=== PATIENT | male | born 1945 | race Caucasian/White ===

== ENCOUNTER → 2017-02-11 | Outpatient (CLI) | payer OTHER ==
[~2017-02-11] VITALS: Ht 180.3 cm; Wt 118.4 kg
[~2017-02-11] MED LIST: ALEVE220 MG PO; B-100 COMPLEX1 EAC1 PO; B-COMPLEX-VITA1 EACH PO; CIPROFLOXACIN500 M3 PO; CYCLOBENZAPRINE5 MG PO; FLEXERIL PO; FOLIC ACID; FOLIC ACID 40400 MCG PO; HYDROCODONE OR; IBUPROFEN 800800 MG PO; IRON; LISINOPRIL40 MG PO; MULTIVITAMINS PO; NORCO 5-325 TA1 EACH PO; OMEPRAZOLE10 MG PO; PRILOSEC 20 MG20 MG PO; SLOW FE 160MG160 MG PO; SLOW RELEASE I140 MG PO; TAMSULOSIN HCL0.4 M1 PO; VICODIN 5-5001 EACH PO; VITAMIN B-12500 MCG PO; VITAMIN B-6250 MG PO; VITAMIN D1000 UNI1 PO; VITAMIN E400 UNIT PO; VITAMINC500 PO
--- NOTE | ~2017-02-11 | P ---
[facility] [place] [address] PROCEDURE REPORT Name: ANN TREVINO Room #: REG [facility]#: [id number] Admission: 02/11/17 Attend Phys: Lincoln Borjas Discharge: Date of : 43 Report #: [id number] THIS REPORT FOR: //name// CC: Lincoln Gomez MD DATE OF SERVICE: 02/11/2017 PROCEDURE PERFORMED: Upper endoscopy with biopsies. 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 He is currently taking daily PPI therapy. He denies any symptoms. He denies any dysphagia. He is here for a 1-year followup. DESCRIPTION OF PROCEDURE: The risks and benefits of the procedure were explained to the patient, those risks including but not limited to bleeding, perforation, the risk of sedation. He understood these risks and gave informed consent. Sedation was given using propofol per anesthesia. Next, using a standard [email or web address] upper endoscope, the scope was placed in the patient's mouth and advanced under direct vision through the esophagus, stomach and into the second portion of the duodenum. The upper and mid esophagus was normal in appearance. In the distal esophagus, a short segment of Nix's was once again noted. Biopsies were obtained. There was no evidence of esophagitis. Overall, the gastric mucosa was normal. The pylorus was normal and patent. The duodenal bulb, first and second portion were all normal. The scope was then withdrawn and the procedure terminated. The patient tolerated the procedure well. IMPRESSION: 1. Short segment Nix's esophagus ____ distal esophagus. Biopsies obtained. 2. Otherwise, normal upper endoscopy. RECOMMENDATIONS: 1. Await biopsy results. 2. Continue daily PPI therapy. Thank you for allowing me to participate in his care. By: 0937 1054 Lincoln Peoples MD /nt
--- NOTE | ~2017-02-11 | S ---
[facility] [address] [place] [address] SURGICAL PATH RPT PROCEDURE Name: ANN TREVINO Room #: REG [facility] Naylor.#: [id number] Admission: 02/11/17 Date of : 43 Discharge: Report #: [id number] Path Case #: [id number] PATHOLOGY REPORT DRAFT COLLECTION DATE: 02/11/2017 RECEIVED DATE: 02/11/2017 SPECIMEN(S) RECEIVED: A.Distal esophagus bx
== END | disposition home or self-care (01) ==
LOC: GI 06:46
DX: K22.70 Barrett's esophagus without dysplasia (principal); K21.9 Gastro-esophageal reflux disease without esophagitis
CPT/HCPCS: 62110

== ENCOUNTER → 2017-07-29 | Outpatient (CLI) | payer OTHER ==
[~2017-07-29] MED LIST changes: +LEVO-T50 MCG PO
--- NOTE | ~2017-07-29 | EKG ---
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
== END | disposition home or self-care (01) ==
LOC: LITH 07:49
DX: N20.0 Calculus of kidney (principal); I10 Essential (primary) hypertension; Z98.890 Other specified postprocedural states

== ENCOUNTER → 2019-01-06 | Outpatient (CLI) | payer OTHER | LOC: MRI 07:15 | DX: M47.22 Other spondylosis with radiculopathy, cervical region (principal); M25.78 Osteophyte, vertebrae ==

== ENCOUNTER → 2019-03-31 | Outpatient (CLI) | payer OTHER | LOC: RAD 12:44 | DX: R10.9 Unspecified abdominal pain (principal) ==

== ENCOUNTER → 2019-08-04 | Outpatient (CLI) | payer OTHER | LOC: MRI 07:14 | DX: S83.282A Other tear of lateral meniscus, current injury, left knee, initial encounter (principal); M22.42 Chondromalacia patellae, left knee; M25.462 Effusion, left knee; M71.22 Synovial cyst of popliteal space [Baker], left knee; X58.XXXA Exposure to other specified factors, initial encounter; Y93.89 Activity, other specified; Y92.89 Other specified places as the place of occurrence of the external cause; Y99.8 Other external cause status ==

== ENCOUNTER 2019-08-26 05:42 | Day surgery (SDC) | payer OTHER ==
[~2019-08-26] VITALS: Ht 180.3 cm; Wt 115.7 kg
[~2019-08-26 05:42] MED LIST changes: +ADVIL200 M1 PO; +LEVO-T100 MCG PO; +LOPRESSOR25 PO; +OMEPRAZOLE40 MG PO; +SULINDAC 150 M150 MG PO; +TAMSULOSIN HCL0.4 MG PO
[2019-08-26 07:02] VITALS: BP 204/67
[2019-08-26 07:25] LABS: HEMOGLOBIN 14.4 gm/dL (14.0-18.0); MCH 26.9 pg (26.0-34.0); MCHC 32.8 g/dL (28.0-37.0); MCV 82.1 fL (80.0-100.0); RBC 5.35 mil/uL (4.50-6.00); RDW 15.6 % (10.5-14.5); WBC 8.6 thou/uL (4.0-11.0)
--- NOTE | 2019-08-26 08:53 | O ---
[facility] [place] [address] OPERATIVE REPORT Name: ANN TREVINO Room #: 150-1 [facility].#: [id number] Admission: 08/26/19 Attend Phys: Teto Parker MD Discharge: Date of : 43 Report #: [id number] THIS REPORT FOR: //name// CC: Teto Gomez DATE OF SERVICE: 08/26/2019 PREOPERATIVE DIAGNOSIS: Left knee pain with lateral meniscus tear and degenerative chondromalacia. POSTOPERATIVE DIAGNOSIS: Left knee pain with lateral meniscus tear and degenerative chondromalacia. PROCEDURE: Left knee arthroscopy with partial lateral meniscectomy and limited debridement of patellofemoral chondromalacia. SURGEON: Teto Parker MD INDICATIONS: This heavy, but still very active and fully independent 74-year-old gentleman still works for work week. He is on his feet rather constantly. He complains of moderate ongoing left knee pain. Clinical findings and MRI study are consistent with mild chondromalacia and a mild lateral meniscus tear. He has had similar problems on the opposite side, which were benefited with arthroscopic debridement. We tried conservative measures on the left without much benefit. He certainly does not seem to be in need of a total joint replacement, despite his advanced age, we have elected to go ahead with simple arthroscopic debridement hoping that he can be more comfortable and continue working and functioning. DESCRIPTION OF PROCEDURE: The patient was taken to the operating room where he was placed under general anesthesia. Prophylactic intravenous antibiotics were administered. The left knee and leg were meticulously prepped and draped. A thigh tourniquet was applied and inflated to 300 mmHg. A lateral suprapatellar inflow cannula was placed. The arthroscope and probe were introduced. Various compartments were sequentially visualized and documented with arthroscopic photography. In general, the degenerative cartilage damage is rather mild. There is a grade 1 to grade 2 chondromalacia on the patella and the lateral femoral condyle. These areas were gently debrided. There was a small amount of loose cartilage debris in the suprapatellar pouch, which was also debrided. The intercondylar notch reveals normal cruciate ligaments, which were functioning nicely. The medial compartment reveals good cartilage on the medial femoral condyle and the medial tibial plateau with only minor fissuring and [address] [address] OPERATIVE REPORT Name: ANN TREVINO Room #: 150-1 [facility]#: [id number] Admission: 08/26/19 Attend Phys: Teto Parker MD Discharge: Date of : 43 Report #: [id number] grooving. There is slight fraying along the inner margin of the medial meniscus, which was gently debrided. The vast majority of the meniscus is in good shape and no further debridement here was necessary. The lateral compartment revealed more significant damage to the lateral meniscus. This involves about the inner one half to two thirds of the meniscus. There is both vertical and horizontal cleavage tearing extending from the anterior horn almost all the way back to the posterior horn. These areas were debrided using a small shaver leaving the outer one third of the meniscus intact and stable. There is mild corresponding degenerative chondromalacia on the lateral femoral condyle, which was also debrided. The lateral tibial plateau was in good shape and no debridement there was necessary. The entire knee was copiously irrigated. All excess fluid was evacuated from the knee. The knee was then injected with 80 mg of Depo-Medrol and 20 mL of 0.5% Marcaine with epinephrine. The puncture sites were closed with interrupted nylon suture. The patient was awakened and returned to recovery room in good condition. <ELECTRONICALLY SIGNED> By: Teto Parker MD 08/26/19 0853 0838 0852 Teto Parker MD /nt
[2019-08-26 09:02] VITALS: BP 204/67
== END 2019-08-26 09:40 | disposition home or self-care (01) ==
LOC: OR 05:42 → TBA 05:43 → OR 07:35
PROVIDERS: Orthopaedic Surgery
DX: M25.562 Pain in left knee (principal); M23.242 Derangement of anterior horn of lateral meniscus due to old tear or injury, left knee; M23.232 Derangement of other medial meniscus due to old tear or injury, left knee; M94.262 Chondromalacia, left knee; I10 Essential (primary) hypertension; E11.9 Type 2 diabetes mellitus without complications; D64.9 Anemia, unspecified; K21.9 Gastro-esophageal reflux disease without esophagitis; M19.90 Unspecified osteoarthritis, unspecified site; E03.9 Hypothyroidism, unspecified; Z98.890 Other specified postprocedural states; Z90.49 Acquired absence of other specified parts of digestive tract; Z79.899 Other long term (current) drug therapy; Z87.442 Personal history of urinary calculi
CPT/HCPCS: 50010; 50101; 50405; 51038; 54170; 56526; 56616; 57103; 57180; 62110; 62900; 70005

== ENCOUNTER → 2020-09-11 | Outpatient (CLI) | payer OTHER ==
[~2020-09-11] MED LIST changes: +CIPRO500 M1 PO; +METRONIDAZOLE500 M4 PO; +NORVASC10 MG PO
== END ==
LOC: LAB 14:21
PROVIDERS: ATTEND Neuromusculoskeletal Medicine & OMM
DX: Z20.828 Contact with and (suspected) exposure to other viral communicable diseases (principal)

== ENCOUNTER 2020-09-12 11:19 | Inpatient (IN) | payer OTHER ==
[~2020-09-12] VITALS: Ht 180.3 cm; Wt 117.5 kg
[~2020-09-12 11:19] MED LIST changes: -CIPRO500 M1 PO; -LOPRESSOR25 PO; +LOPRESSOR50 PO; -METRONIDAZOLE500 M4 PO; -NORVASC10 MG PO
[2020-09-12 11:21] VITALS: BP 106/71
[2020-09-12 12:39] LABS: ABSOLUTE NEUTROPHILS 8.5 thou/uL (1.4-8.2); BASOPHILS 0.3 % (0.0-2.0); EOSINOPHILS 7.4 % (0.0-3.0); HEMATOCRIT 42.5 % (42.0-52.0); HEMOGLOBIN 13.8 gm/dL (14.0-18.0); LYMPHOCYTES 4.7 % (24.0-44.0); MCH 26.1 pg (26.0-34.0); MCHC 32.5 g/dL (28.0-37.0); MCV 80.2 fL (80.0-100.0); MONOCYTES 5.9 % (1.0-8.0); PLATELET COUNT 265 thou/uL (150-400); POLYS 81.7 % (36.0-66.0); RDW 15.8 % (10.5-14.5); WBC 10.4 thou/uL (4.0-11.0)
[2020-09-12 12:50] LABS: ANION GAP 15 mmol/L (7-16); BUN 47 mg/dL (7-18); CALCIUM 8.9 mg/dL (8.5-10.1); CHLORIDE 103 mmol/L (98-107); CO2 21 mmol/L (21-32); GLUCOSE 146 mg/dL (74-106); SODIUM 139 mmol/L (136-145)
[2020-09-12 13:00] LABS: ALBUMIN 2.9 g/dL (3.4-5.0); DIRECT BILIRUBIN 0.1 mg/dL (<0.1-0.2); LIPASE 49 U/L (73-393); SGOT 33 U/L (15-37); SGPT 40 U/L (30-65); TOTAL BILIRUBIN 0.5 mg/dL (0.2-1.0); TOTAL PROTEIN 7.3 g/dL (6.4-8.2); TROPONIN-I <0.06 ng/mL (<0.06)
[2020-09-12 16:05] LABS: URINE BILIRUBIN NEGATIVE (Negative); URINE BLOOD NEGATIVE (Negative); URINE CLARITY SL CLOUDY; URINE COLOR YELLOW; URINE GLUCOSE-RANDOM* NEGATIVE (Negative); URINE KETONES NEGATIVE (Negative); URINE LEUKOCYTES-REFLEX NEGATIVE (Negative); URINE NITRITE-REFLEX NEGATIVE (Negative); URINE PROTEIN (DIPSTICK) TRACE (Negative); URINE SPECIFIC GRAVITY >= 1.030 (1.005-1.035); URINE UROBILINOGEN 0.2 E.U./dl (0.2-1.0)
[2020-09-12 19:04] LABS: FOLIC ACID 27.8 ng/mL (8.6-58.9)
[2020-09-12 19:10] VITALS: BP 139/97
--- NOTE | 2020-09-12 19:11 | NUR ---
HAND OFF TOOL SENT TO [facility]
[2020-09-12 19:31] VITALS: BP 180/82
[2020-09-12 20:01] VITALS: BP 145/61
--- NOTE | 2020-09-13 00:49 | NUR ---
PT ADMITTED FROM HOME. PT WAS IN ED SINCE EARLY AFTERNOON. PT STATED HE HAS BEEN WEAK, BODY ACHES,DIARRHEA, LACK OF APPETITE SINCE LAST THURSDAY. PT AND HIS WERE TESTED FOR COVID YESTERDAY WAITING ON RESULTS. PT IS NOT COUGHING OR SOA. PT IS WEAK AND POORLY TRANSFERRED SELF FROM CART TO BED. PT IS OBESE, PALE, PICTURE TAKEN LOW ABD WOUND SITE OPEN SLOUGH, PT REPORTS FROM RESECTION SURGERY ON 08/08. PT IS IRRITABLE WITH RESPONSES TO ADMISSION QUESTIONS. PT DECLINED SCDS. IVF INTACT. BED ALARM ON.
[2020-09-13 04:03] VITALS: BP 150/74
[2020-09-13 06:25] LABS: ABSOLUTE NEUTROPHILS 6.1 thou/uL (1.4-8.2); BASOPHILS 0.3 % (0.0-2.0); EOSINOPHILS 0.7 % (0.0-3.0); HEMATOCRIT 39.7 % (42.0-52.0); LYMPHOCYTES 6.2 % (24.0-44.0); MCH 26.1 pg (26.0-34.0); MCHC 32.6 g/dL (28.0-37.0); MONOCYTES 1.9 % (1.0-8.0); PLATELET COUNT 242 thou/uL (150-400); POLYS 90.9 % (36.0-66.0); RBC 4.96 mil/uL (4.50-6.00); WBC 6.8 thou/uL (4.0-11.0)
--- NOTE | 2020-09-13 06:36 | NUR ---
PT DID NOT URINATE MORE THAN 75CCS. PT STATES SOME TIMES HE DOES URINATE AND OTHER TIMES IT TAKES A WHILE. BLADDER SCANNED 380 NOTED. PROVIDER CONTACTED SINCE PT REPORTED HISTORY OR RECENT BLADDER SURGERY, WITH CURRENT OPEN WOUND AND REPORTS OF PENIS RECONSTRUCTION AT . SURGERY CONSULT OBTAINED. DARLING SENT TO MED RECORDS. PROVIDER WILL HAVE ONCOMING PROVIDER REVIEW PRIOR TO CATHETERIZATION ORDERS.
[2020-09-13 06:45] LABS: CALCIUM 8.6 mg/dL (8.5-10.1); CREATININE 1.4 mg/dL (0.7-1.3); MAGNESIUM 2.1 mg/dL (1.8-2.4); POTASSIUM 4.4 mmol/L (3.5-5.1)
[2020-09-13 07:12] VITALS: BP 163/80
[2020-09-13 08:30] VITALS: BP 178/90
[2020-09-13 09:40] VITALS: BP 124/69
--- NOTE | 2020-09-13 09:58 | NUR ---
ASSESSMENT: CM REVIEWED CHART AND SPOKE WITH PT. PT IS ALERT AND ORIENTED X4. PT IS CURRENTLY IN ENHANCED ISOLATION AND BEING RULE OUT FOR COVID 19-RESULTS PENDING. PT WAS ADMITTED DUE TO FATIGUE, WEAKNESS, DIARRHEA. PT REPORTS THAT HE LIVES IN AN APT WITH HIS . PT IS NOT CURRENTLY REQUIRING ANY OXYGEN. PT REPORTS THAT HE HAS NO STEPS TO ENTER HIS APT. PT REPORTS HE HAS A WALKER AT HOME BUT STATES HE NORMALLY DOES NOT USE IT. PT REPORTS BEING INDEPENDENT WITH ADLS. PT REPORTS NO HX OF HH OR SNF. PTS PCP IS DR. BRISCOE. GENERAL SURGERY WAS CONSULTED DUE TO URINARY RETENTION AND ARE FOLLOWING. CM WILL CONTINUE TO FOLLOW TO ASSIST NEEDED.
[2020-09-13 15:58] VITALS: BP 170/80
--- NOTE | 2020-09-13 18:35 | NUR ---
RN ASSUMED PT'S CARE AT 0700AM, PT IS A&OX3, PT HAS STARTED IV ABX, PT 'S VS ARE STABLE, PT DOES NOT HAVE SOB AND DIARRHEA , WOUND DR AND SURGICAL DR HAVE SEEING THE PT. PT'S ISOLATION IS OFF DUE TO NEGATIVE COVID TEST.
[2020-09-13 19:28] VITALS: BP 178/90
--- NOTE | 2020-09-14 01:03 | NUR ---
ASSUMED CARE OF PT AT 1900HRS. PT AOX3-4 AND LETS NEEDS BE KNWON. FALL PRECAUTION IN PLACE. PT DENIES PAIN, NAUSEA OR SOA. PT REPORTS BEING WEAK. ASSESSMENT CHARTED. ABX TREATMENT CONTINUED. PT HAD ELEVATED BP BUT OTHER VSS. PT WAS COVID NEGATIVE AND WAS ORDERED TO DC ISOLALATION. PT TRANSFERRED TO ROOM 454 AT 0115HRS IN STABLE CONDITION. REPORT GIVEN TO NEGRITO ZAVALETA.
[2020-09-14 01:06] LABS: GLYCOHEMOGLOBIN (HGB A1C) 6.2 % (4.8-5.6)
[2020-09-14 01:20] VITALS: BP 151/86
[2020-09-14 08:22] VITALS: BP 149/70
--- NOTE | 2020-09-14 10:45 | NUR ---
cm visited with mahamed at bedside, cm cont to wear face mask and shield during visit. pt just had worked with physical therapy. cm education on hh, list choice provided , " [facility]"/mahamed. [facility] to be [facility]. faxed dc orders to [phone]
[2020-09-14 12:14] VITALS: BP 149/70
[2020-09-14] MEDS ORDERED: NORVASC10 MG PO (12:22)
[2020-09-14] MEDS ORDERED: CIPRO500 M1 PO (12:23)
[2020-09-14] MEDS ORDERED: METRONIDAZOLE500 M4 PO (12:23)
--- NOTE | 2020-09-14 12:38 | NUR ---
FAXED REFERRAL TO [facility] SPOKE WITH SIMONA IN INTAKE SHE RECEIVED REFERRAL AND WILL ACCEPT DC ORDERSS/SUMMARY FAXED RECEIVED CONFIRMATION AND THEY WILL CALL PT TO ARRANGE VISITS.
--- NOTE | 2020-09-14 13:23 | NUR ---
ASSUMED CARE OF PATIENT AT SHIFT CHNAGE. ASSESSMENT CHARTED. MEDS GIVEN PER MAR. VSS. PATIENT IS A&OX4 AND MAKES NEEDS KNOWN. WORKED W PT/OT THIS DAY. RECOMMENDATION IS FOR HH TO WORK W PATIENT UPON DISCHARGE. PROVIDER DETERMINED HE WAS MEDICALLY STABLE TO D/C HOME. SURGEON DETERMINED PATIENT DID NOT NEED SURGERY FOR RETENTION. BLADDER SCANNED POST VOID 0ML. D/C INSTRUCTIONS PROVIDED ALONG W EDUCATION ON MEDS AND DISEASE MANAGEMENT. PATIENT LEFT UNIT AT [address] MOUNTER SMOKING PIPE IN . VOICED NO OTHER NEEDS; HX OF ALCOHOL CONSUMPTION, INSTRUCTED TO CALL PROVIDER IF FACIAL REDNESS DOES NOT RESOLVE.
--- NOTE | 2020-09-20 11:04 | HC ---
[facility] [place] [address] CONSULTATION Name: ANN TREVINO Room #: 454-P [facility] IN M.R.#: [id number] Admission: 09/12/20 Attend Phys: Courtney Anthony MD Discharge: 09/14/20 Date of : 44 Report #: [id number] THIS REPORT FOR: cc: Chidi Gomez,Sid Greco MD ~ DATE OF SERVICE: 09/13/2020 CHIEF COMPLAINT: Surgical wound in the suprapubic region. HISTORY OF PRESENT ILLNESS: This is a 75-year-old male patient who was admitted to the hospital with generalized weakness and diarrhea. He has had genitourinary surgery, removal of bladder stone, amongst other procedures at another facility. He has a nonhealing surgical area in the suprapubic region. I have been asked to see him with regard to wound care recommendations: The patient denies any significant pain in that area. PAST MEDICAL HISTORY: positive for history of a kidney stone with stent placement in 1977, lumbar laminectomy in 1986, hypertension, rotator cuff and tooth repair in 2009, cholecystectomy 2011, a left percutaneous nephrolithotomy tube placed in 2012, lithotripsy in 2012. He has diet-controlled diabetes, Nix's esophagus and hypothyroidism. Primary care physician is Dr. Chidi Gomez. SOCIAL HISTORY: Negative for alcohol or tobacco use. FAMILY HISTORY: Noncontributory. CURRENT MEDICATIONS: Include lisinopril, vitamin E, omeprazole, tamsulosin, metoprolol, sulindac, levothyroxine, ibuprofen, ferrous sulfate, cyanocobalamin, ascorbic acid and cholecalciferol. ALLERGIES: No known drug allergies. REVIEW OF SYSTEMS: CONSTITUTIONAL: The patient complains of some generalized weakness. Denies focal weakness, numbness or tingling. EYES: The patient denies visual changes, redness, or drainage. ENT: The patient denies earache, nasal drainage, sore throat. CARDIOVASCULAR: The patient denies chest pain, palpitations or diaphoresis. PULMONARY: The patient denies cough or shortness of breath. GASTROINTESTINAL: The patient denies nausea, vomiting or abdominal pain. The patient does have a suprapubic wound. GENITOURINARY: The patient denies frequency of urination. ORTHOPEDIC: The patient denies pain or swelling of the extremities. [address] [address] CONSULTATION Name: ANN TREVINO Room #: 454-P [facility] IN ..#: [id number] Admission: 09/12/20 Attend Phys: Courtney Anthony MD Discharge: 09/14/20 Date of : 44 Report #: [id number] Other systems in a 14-point review of systems are negative. PHYSICAL EXAMINATION: VITAL SIGNS: At this time include temperature 36.4, pulse 73, respiratory rate 20, blood pressure 170/80. GENERAL: This is a somewhat chronically ill-appearing male patient who appears to be in minimal distress. HEENT: Head normocephalic. Nose and throat clear. NECK: Supple. LUNGS: Clear. ABDOMEN: Soft. Bowel sounds present. Suprapubic region demonstrates what appears to be a surgical wound in the abdominal skin fold and/or suprapubic region. It is healthy, clean and granulating. There are a few sutures in place that I have left intact. NEUROLOGIC: The patient is alert and oriented and appropriate. LABORATORY DATA: Sodium 141, potassium 4.4, chloride 108, CO2 19, BUN 39, creatinine 1.4, glucose 144. White blood cell count 6.8 with hemoglobin of 13.0. CLINICAL IMPRESSION: 1. Surgical wound in the suprapubic region. 2. COVID-19 pending person under investigation. 3. Diarrhea. 4. Acute renal failure. 5. Diabetes mellitus, diet controlled. RECOMMENDATIONS: At this point in time, we will recommend topical silver alginate packing to the surgical wound covered with a bordered foam, to be changed daily. He will need aggressive nutritional support. He is scheduled to see his urologist for post-surgical follow up after Jason and he will need to keep this appointment. I appreciate being asked to see him in consultation. <ELECTRONICALLY SIGNED> By: Sid Galvan MD 09/20/20 1104 1028 1212 Sid Galvan MD /nt
--- NOTE | 2020-09-24 07:52 | EKG ---
[facility] [place] [address] ELECTROCARDIOGRAM REPORT Name: ANN TREVINO Room #: 454-P [facility] IN M.R.#: [id number] Admission: 09/12/20 Attend Phys: Courtney Anthony MD Discharge: 09/14/20 Date of : 43 Report #: [id number] THIS REPORT FOR: cc: Chidi Gomez Steven F. DO Santiago, Patrick MD [facility] THIS REPORT FOR: //name// [facility] ED Test Date: 2020-09-12 Test Time: 11:57:57 Pat Name: ANN TREVINO Department: Room: 361 Gender: M Director Consumer Affairs: JUSTO : 1945 Requested By: Boris Gaona Order Number: [id number] MD: Sonu Blackwood Measurements Intervals [place] Rate: 82 P: -1 [place]: 159 QRS: -21 QRSD: 109 T: 32 QT: 413 QTc: 483 Interpretive Statements Sinus rhythm Borderline left axis deviation Compared to ECG 07/29/2017 08:13:45 No significant change Electronically Signed On 09-13-2020 7:24:38 LOOM FIXER by Sonu Blackwood [email or web address] <ELECTRONICALLY SIGNED> By: Sonu Blackwood MD, FACC 09/13/20 0724 1157 1157 Sonu Blackwood MD, [facility] /EPI
== END 2020-09-14 14:11 | disposition home health service (06) | DRG 391 ==
LOC: ER 11:19 → EROBS 16:53 → 3W 16:53 → 4W 09-14 01:07
PROVIDERS: Nurse Practitioner; ADMIT Hospitalist; ATTEND Hospitalist
DX: K52.9 Noninfective gastroenteritis and colitis, unspecified (principal); N17.0 Acute kidney failure with tubular necrosis; E44.0 Moderate protein-calorie malnutrition; Z20.828 Contact with and (suspected) exposure to other viral communicable diseases; I10 Essential (primary) hypertension; R33.9 Retention of urine, unspecified; K21.9 Gastro-esophageal reflux disease without esophagitis; E03.9 Hypothyroidism, unspecified; M19.90 Unspecified osteoarthritis, unspecified site; E11.9 Type 2 diabetes mellitus without complications; D50.9 Iron deficiency anemia, unspecified; S31.109A Unspecified open wound of abdominal wall, unspecified quadrant without penetration into peritoneal cavity, initial encounter; Z87.442 Personal history of urinary calculi; Z90.49 Acquired absence of other specified parts of digestive tract; X58.XXXA Exposure to other specified factors, initial encounter; Y93.89 Activity, other specified; Y92.89 Other specified places as the place of occurrence of the external cause; Y99.8 Other external cause status
CPT/HCPCS: 10879

== ENCOUNTER 2020-09-21 14:03 | Inpatient (IN) | payer OTHER ==
[~2020-09-21] VITALS: Ht 180.3 cm; Wt 116.3 kg
[~2020-09-21 14:03] MED LIST changes: +CIPRO500 M1 PO; +METRONIDAZOLE500 M4 PO; +NORVASC10 MG PO
[2020-09-21 14:09] VITALS: BP 145/79
[2020-09-21 14:29] LABS: BASOPHILS 0.2 % (0.0-2.0); EOSINOPHILS 6.8 % (0.0-3.0); HEMOGLOBIN 12.8 gm/dL (14.0-18.0); LYMPHOCYTES 11.5 % (24.0-44.0); MCH 26.1 pg (26.0-34.0); MCHC 32.8 g/dL (28.0-37.0); MCV 79.6 fL (80.0-100.0); MONOCYTES 6.5 % (1.0-8.0); PLATELET COUNT 274 thou/uL (150-400); RDW 15.7 % (10.5-14.5)
[2020-09-21 14:41] LABS: ANION GAP 10 mmol/L (7-16); BUN 19 mg/dL (7-18); CALCIUM 9.2 mg/dL (8.5-10.1); CHLORIDE 106 mmol/L (98-107); CO2 22 mmol/L (21-32); CREATININE 1.2 mg/dL (0.7-1.3); GLUCOSE 169 mg/dL (74-106); POTASSIUM 4.2 mmol/L (3.5-5.1); SODIUM 138 mmol/L (136-145)
[2020-09-21 14:47] LABS: ALBUMIN 2.9 g/dL (3.4-5.0); SGOT 34 U/L (15-37); SGPT 56 U/L (16-63); TOTAL BILIRUBIN 0.3 mg/dL (0.2-1.0); TROPONIN-I <0.06 ng/mL (<0.06)
[2020-09-21 20:49] VITALS: BP 162/73
[2020-09-22] VITALS (7 sets, daily range): BP systolic 143–174; BP diastolic 76–84
[2020-09-22 02:56] LABS: HEMATOCRIT 39.1 % (42.0-52.0); HEMOGLOBIN 12.4 gm/dL (14.0-18.0); MCH 25.3 pg (26.0-34.0); MCHC 31.7 g/dL (28.0-37.0); MCV 79.8 fL (80.0-100.0); RBC 4.89 mil/uL (4.50-6.00); WBC 7.4 thou/uL (4.0-11.0)
[2020-09-22 03:07] LABS: ANION GAP 11 mmol/L (7-16); BUN 21 mg/dL (7-18); CALCIUM 9.2 mg/dL (8.5-10.1); CHLORIDE 103 mmol/L (98-107); CO2 25 mmol/L (21-32); CREATININE 1.1 mg/dL (0.7-1.3); GLUCOSE 138 mg/dL (74-106); POTASSIUM 4.1 mmol/L (3.5-5.1); SODIUM 139 mmol/L (136-145); TROPONIN-I <0.06 ng/mL (<0.06)
[2020-09-22] MEDS ORDERED: LEVOFLOXACIN750 MG PO (11:11)
--- NOTE | 2020-09-22 11:30 | 2DMMODE ---
[facility] [place] [address] 2 D/M-MODE ECHOCARDIOGRAM Name: ANN TREVINO Room #: 218-P ADM IN M.R.#: [id number] Admission: 09/21/20 Attend Phys: Royer Cronin MD Discharge: Date of : 44 Report #: [id number] THIS REPORT FOR: cc: Chidi Gomez,Mohinder Carolina MD ~ APPROVED REPORT Study performed: 09/22/2020 08:36:09 EXAM: Comprehensive 2D, Doppler, and color-flow Echocardiogram Patient Location: Bedside Room #: 218 Status: on-call BSA: 2.34 HR: 78 bpm BP: 143/77 mmHg Rhythm: NSR Other Information Study Quality: Adequate Indications Congestive Heart Failure Diabetes Dyspnea Hypertension/HDD 2D Dimensions RVDd: 33.51 mm IVSd: 16.72 (7-11mm) LVOT Diam: 22.45 (18-24mm) LVDd: 47.36 mm PWd: 18.29 (7-11mm) Ascending Ao: 32.76 (22-36mm) LVDs: 30.47 (25-40mm) Aortic Root: 35.03 mm IVC: 12.00 mm Volumes Left Atrial Volume (Systole) Single Plane 4CH: 79.47 mL Single Plane 2CH: 62.41 mL LA ESV Index: 31.00 mL/m2 Aortic Valve AoV Peak Joel.: 1.38 m/s AO Peak Gr.: 7.67 mmHg LVOT Max P.86 mmHg [facility] [address] [place] [address] 2 D/M-MODE ECHOCARDIOGRAM Name: ANN TREVINO Room #: 218-P [facility] IN ..#: [id number] Admission: 09/21/20 Attend Phys: Royer Cronin MD Discharge: Date of : 43 Report #: [id number] LVOT Max V: 0.98 m/s SHAY Vmax: 2.81 cm2 Mitral Valve E/A Ratio: 0.6 MV Decel. Time: 252.13 ms MV E Max Joel.: 0.53 m/s MV A Joel.: 0.87 m/s MV PHT: 73.12 ms IVRT: 100.35 ms Pulmonary Valve PV Peak Joel.: 1.08 m/s PV Peak Gr.: 4.70 mmHg Pulmonary Vein P Vein S: 0.45 m/s P Vein A: 0.26 m/s P Vein D: 0.61 m/s P Vein A Dur.: 100.3 msec P Vein S/D Ratio: 0.74 Tricuspid Valve RAP Estimate: 10.00 mmHg Left Ventricle The left ventricle is normal size. Moderate concentric left ventricular hypertrophy. The left ventricular systolic function is normal. The left ventricular ejection fraction is within the normal range. LVEF is 60-65%. Mild diastolic dysfunction is present (impaired relaxation pattern). Right Ventricle The right ventricle is normal size. The right ventricular systolic function is normal. Atria The left atrium size is normal. The right atrium size is normal. Aortic Valve Mild aortic valve sclerosis. Trace to mild aortic regurgitation. There is no aortic valvular stenosis. Mitral Valve The mitral valve is normal in structure. Mild mitral regurgitation. No evidence of mitral valve stenosis. Tricuspid Valve [facility] [place] [place] [address] 2 D/M-MODE ECHOCARDIOGRAM Name: ANN TREVINO Room #: 218-P [facility] IN M.R.#: [id number] Admission: 09/21/20 Attend Phys: Royer Cronin MD Discharge: Date of : 43 Report #: [id number] The tricuspid valve is normal in structure. Trace tricuspid regurgitation. Unable to assess PA pressure. Pulmonic Valve The pulmonary valve is normal in structure. Mild pulmonic regurgitation. Great Vessels The aortic root is normal in size. IVC is normal in size and collapses <50% with inspiration. Pericardium There is no pericardial effusion. <Conclusion> The left ventricle is normal size. Moderate concentric left ventricular hypertrophy. The left ventricular systolic function is normal. Mild diastolic dysfunction is present (impaired relaxation pattern). The right ventricle is normal size. The left atrium size is normal. Trace to mild aortic regurgitation. Mild mitral regurgitation. <ELECTRONICALLY SIGNED> By: Mohinder Starkey MD 09/22/20 1129 28 28 Mohinder Starkey MD /INF
[2020-09-22 14:36] LABS: BE(vivo) 0.3 mmol/L (-2 to +3); HCO3 23.3 mmol/L (22.0-26.0); PCO2 33.1 mmHg (35.0-45.0); PO2 87.5 mmHg (80.0-100.0); pH 7.466 (7.360-7.450); sO2 97.2 % (92.0-98.0)
[2020-09-22 15:08] LABS: URINE BILIRUBIN NEGATIVE (Negative); URINE BLOOD 1+ (Negative); URINE CLARITY CLEAR; URINE COLOR YELLOW; URINE GLUCOSE-RANDOM* NEGATIVE (Negative); URINE KETONES NEGATIVE (Negative); URINE LEUKOCYTES-REFLEX NEGATIVE (Negative); URINE NITRITE-REFLEX NEGATIVE (Negative); URINE PROTEIN (DIPSTICK) NEGATIVE (Negative); URINE SPECIFIC GRAVITY <= 1.005 (1.005-1.035); URINE UROBILINOGEN 0.2 E.U./dl (0.2-1.0)
[2020-09-22 15:28] LABS: BACTERIA-REFLEX None Seen /HPF (None Seen); CASTS None Seen /LPF (None Seen); CRYSTALS None Seen /LPF (None Seen); SQUAMOUS None Seen /LPF (0-3); URINE RBC 0-2 Rare /HPF (0-2); URINE WBC-REFLEX None Seen /HPF (0-5); YEAST-REFLEX Present (None Seen)
--- NOTE | 2020-09-22 19:49 | NUR ---
RECEIVED PT'S CARE AROUND 0710; PT. ON CHAIR; ALERT; DURING AM ASSESSMENT AOX4; NO C/O PAIN; AM MEDICATION GIVEN; ORDERS ON PLACED; LAB NOTIFIED OF STAT ORDERS; PHYSICIAN NOTIFIED D-DIMER RESULTS; ORDERS ON PLACED; PT. GONE FOR CT AFTER BREAKFAST; PHYSICIAN NOTIFIED WHEN RESULTS IN THE SYSTEM; ORDERS ON PLACED; PT. UP TO CHAIR; SOB; DIAPHORECTIC; PHYSICIAN NOTIFIED; ORDERS RECEIVED; PT. NOTIFIED OF BED REST; ST. UNDERSTANDING; KUB SHOWED SOME URINAL RESIDUAL; BLADDER SCANN SHOWED 960 ML; PHYSICIAN NOTIFIED; ORDERS RECEIVED; PT. C/O PAIN WITH MINIMAL TOUCH OVER PENIS; UPSET; C/O GETTING BLOOD THROUGH THE DAY; NOT ABLE TO REST; EDCUATED ABOUT THE IMPORTACE OF GETTING LABS AND URINE OUTPUT; POSSIBLE CONSEQUENCES IF HOLDING URINE; ABLE TO VOID 250ML IN THE URINAL; SOB; ST ON THE MONITOR; BACK TO BED AND EDUCATED REASON TO BED REST AND LUQUE CATHETER; ST. UNDERSTANDING; PHYSICIAN NOTIFIED OF PT. PAIN; ORDERS RECEIVED; LIDOCAINE APPLIED BEFORE INSERTING CATHETER; DECREASE PAIN AT TOUCH; IV LORAZEPAM GIVEN ONE TIME; LUQUE INSERTED; TOLERATED WELL; 400 ML OBTAINED; PHYSICIAN NOTIFIED; WOUND CARE PERFORMED; PT. REQUESTED TO NOT TO BE DISTURBED DURING SHIFT CHANGE AND AT MIDNIGHT; PASSED ON REPORT; ASSESSMENT CHARGED; FOLLOWING POC; PASSED ON REPORT;
--- NOTE | 2020-09-23 03:48 | NUR ---
Assumed pt care at 1900. Pt is sleeping upon arrival to room. Pt stated that he didn't want to be disturned. Fall precaution in place. Assessment completed and documented. Denies any pain. Scheduled meds administered to pt. Tolerated PO intake. Continue to monitor. No acute events overnight. No further needs at this time.
[2020-09-23 04:51] LABS: ABSOLUTE NEUTROPHILS 6.1 thou/uL (1.4-8.2); BASOPHILS 1.2 % (0.0-2.0); LYMPHOCYTES 9.1 % (24.0-44.0); MCH 25.7 pg (26.0-34.0); MCHC 32.3 g/dL (28.0-37.0); MCV 79.4 fL (80.0-100.0); MONOCYTES 7.3 % (1.0-8.0); PLATELET COUNT 246 thou/uL (150-400); POLYS 76.4 % (36.0-66.0); RBC 4.66 mil/uL (4.50-6.00); RDW 16.1 % (10.5-14.5)
[2020-09-23 05:00] VITALS: BP 157/85
[2020-09-23 05:08] LABS: ALBUMIN 2.5 g/dL (3.4-5.0); CALCIUM 8.6 mg/dL (8.5-10.1); CREATININE 1.1 mg/dL (0.7-1.3); MAGNESIUM 1.8 mg/dL (1.8-2.4); PHOSPHORUS 3.3 mg/dL (2.6-4.7); POTASSIUM 4.2 mmol/L (3.5-5.1); TOTAL BILIRUBIN 0.5 mg/dL (0.2-1.0)
[2020-09-23 08:51] VITALS: BP 155/87
--- NOTE | 2020-09-23 10:01 | HC ---
[facility] [place] [address] CONSULTATION Name: ANN TREVINO Room #: 218-P [facility] IN M.R.#: [id number] Admission: 09/21/20 Attend Phys: Royer Cronin MD Discharge: Date of : 43 Report #: [id number] THIS REPORT FOR: cc: Chidi Gomez Steven F. DO Park, Jin S. MD ~ DATE OF SERVICE: 09/22/2020 CARDIOLOGY CONSULTATION INDICATION: Chest pain. HISTORY OF PRESENT ILLNESS: This is a 75-year-old gentleman with a history of diabetes mellitus, general debility, hypertension, presenting with shortness of breath and chest discomfort. He describes a substernal chest ache, worse with walking. It seems to come and go. He also reports dyspnea with minimal physical exertion. There is no history of fever, chills, or cough. Serial troponin levels are negative. He is COVID-19 negative. PAST MEDICAL HISTORY: Diabetes mellitus, hypertension, anemia, arthritis, edema, and gait instability. ALLERGIES: None. MEDICATIONS: Omeprazole, levothyroxine, and amlodipine. SOCIAL HISTORY: Denies tobacco use. Lives with his . FAMILY HISTORY: Negative for premature CAD. REVIEW OF SYSTEMS: A full 10-point review of systems performed. Only the pertinent positives and negatives are described in the HPI. PHYSICAL EXAMINATION: VITAL SIGNS: Blood pressure is 145/70, heart rate is 90 beats per minute. GENERAL APPEARANCE: An overweight male in no acute distress. HEENT: Normocephalic, atraumatic. Oral mucosa moist. NECK: Supple. LUNGS: Clear to auscultation. CARDIAC: Regular rate and rhythm, S1, S2 positive. ABDOMEN: Soft, nontender. EXTREMITIES: Positive edema, no cyanosis. LABORATORY VALUES: ECG reveals sinus rhythm, nonspecific findings. [facility] [address] [place] [address] CONSULTATION Name: ANN TREVINO Room #: 218-P [facility] IN [facility]#: [id number] Admission: 09/21/20 Attend Phys: Royer Cronin MD Discharge: Date of : 43 Report #: [id number] ASSESSMENT AND PLAN: 1. Unstable angina. The patient with significant risk factors, presenting with chest discomfort and shortness of breath with exertion. I discussed with him the pros and cons of a cardiac catheterization. All questions were answered. He understands and wishes to proceed. 2. Hypertension, start beta leatha therapy. 3. Hypercholesterolemia, start statin therapy. 4. Edema, hold on diuretic at this time. <ELECTRONICALLY SIGNED> By: Mohinder Starkey MD 09/23/20 1001 1025 1322 Mohinder Starkey MD /nt
[2020-09-23 11:55] VITALS: BP 155/87
[2020-09-23 16:32] VITALS: BP 166/67
[2020-09-23 19:27] VITALS: BP 159/92
--- NOTE | 2020-09-23 20:14 | NUR ---
RECEIVED PT'S CARE AROUND 0715; PT. ON BED; REQUESTED NOT TO BE INTERRUPTED DURING SHIFT CHANGED; SR ON THE MONITOR; DURING AM ASSESSMENT AOX4; NO C/O PAIN; ST. ABLE TO REST THROUGH THE NIGHT; NPO; AM MEDICATION GIVEN; SBP ON THE 150s; MONITORING; PER DR. BARONE OK TO D/C DIURETIC; ORDERS PUT ON THE SYSTEM; PT. EDUCATED ABOUT TURNING FROM SIDE TO SIDE; ST. UNDERSTANDING; REFUSED PILLOW ON THE BACK TO TURN; NEW URINE SAMPLE SENT FOR URINE CULTURE; DURING THE EVENING SBP ELEVATED; DR. BARONE NOTIFIED; ORDERS RECEIVED; PRN MEDICATION GIVEN; ASSESSMENT CHARGED; FOLLOWING POC; PASSED ON REPORT;
--- NOTE | 2020-09-23 21:37 | EKG ---
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1945 Requested By: Mimi Ramirez Order Number: [id number] MD: Alfredo Loza Measurements Intervals [place] Rate: 77 P: -6 [place]: 182 QRS: -16 QRSD: 109 T: 43 QT: 383 QTc: 434 Interpretive Statements Sinus rhythm Borderline left axis deviation Poor R wave progression consider anterior infarct age indeterminate Compared to ECG 09/22/2020 07:22:21 No significant change Electronically Signed On 09-23-2020 21:37:18 EXPERIMENTAL PREFLIGHT MECHANIC by Alfredo Loza [email or web address] <ELECTRONICALLY SIGNED> By: Alfredo Loza MD 09/23/20 2137 142 142 Alfredo Loza MD /HARMAN
--- NOTE | 2020-09-23 21:38 | EKG ---
[address] [place] [address] ELECTROCARDIOGRAM REPORT Name: ANN TREVINO Room #: 218-P ADM IN M.R.#: [id number] Admission: 09/21/20 Attend Phys: Royer Cronin MD Discharge: Date of : 43 Report #: [id number] [facility] Test Date: 2020-09-22 Test Time: 07:22:21 Pat Name: ANN TREVINO Department: Room: 218 P Gender: M Component Assembler: LUI : 1945 Requested By: Mimi Ramirez Order Number: [id number] MD: Alfredo Loza Measurements Intervals [place] Rate: 72 P: -6 [place]: 194 QRS: -8 QRSD: 108 T: 19 QT: 450 QTc: 493 Interpretive Statements Sinus rhythm Poor R wave progression Borderline prolonged QT interval Compared to ECG 09/21/2020 14:07:11 Sinus tachycardia no longer present Myocardial infarct finding no longer present Electronically Signed On 09-23-2020 21:38:38 APPLICATIONS COORDINATOR by Alfredo Loza [email or web address] <ELECTRONICALLY SIGNED> By: Alfredo Loza MD 09/23/20 2138 1 1 Alfredo Loza MD /HARMAN
[2020-09-24 03:54] LABS: ABSOLUTE NEUTROPHILS 6.9 thou/uL (1.4-8.2); BASOPHILS 1.3 % (0.0-2.0); EOSINOPHILS 5.4 % (0.0-3.0); HEMATOCRIT 36.2 % (42.0-52.0); HEMOGLOBIN 11.8 gm/dL (14.0-18.0); MCH 26.1 pg (26.0-34.0); MCHC 32.7 g/dL (28.0-37.0); MCV 79.7 fL (80.0-100.0); MONOCYTES 7.8 % (1.0-8.0); PLATELET COUNT 246 thou/uL (150-400); POLYS 77.5 % (36.0-66.0); RBC 4.55 mil/uL (4.50-6.00); RDW 15.6 % (10.5-14.5)
[2020-09-24 04:03] LABS: CALCIUM 8.9 mg/dL (8.5-10.1); CREATININE 1.1 mg/dL (0.7-1.3); PHOSPHORUS 3.3 mg/dL (2.6-4.7)
--- NOTE | 2020-09-24 04:08 | NUR ---
Assumed pt care at 1900. Pt is sleeping upon arrival to room, but arousable. No sign of distress noted. Fall precaution in place. Assessment completed and documented. Denies any needs. Scheduled meds administered to pt. Tolerated PO intake. Pt is NPO for scheduled cardiac cath. No acute events overnight. Continue to monitor, no further needs at this time.
[2020-09-24 05:23] VITALS: BP 143/66
--- NOTE | 2020-09-24 07:27 | EKG ---
[place] [address] [address] [facility] [employer] [address] ELECTROCARDIOGRAM REPORT Name: ANN TREVINO Room #: 218-P ADM IN M.R.#: [id number] Admission: 09/21/20 Attend Phys: Royer Cronin MD Discharge: Date of : 43 Report #: [id number] [facility] ED Test Date: 2020-09-21 Test Time: 14:07:11 Pat Name: ANN TREVINO Department: Room: 218 Gender: M Sample Selector: ROD : 1945 Requested By: Dragan Goins Order Number: [id number] MD: Jay Bryan Measurements Intervals [place] Rate: 100 P: 17 [place]: 162 QRS: -17 QRSD: 109 T: 80 QT: 346 QTc: 447 Interpretive Statements Sinus tachycardia Poor R wave progression Nonspecific ST and T wave abnormality Compared to ECG 09/12/2020 11:57:[address] and T wave abnormality is now present Electronically Signed On 09-24-2020 7:26:57 BARGE HAND by Jay Bryan [email or web address] <ELECTRONICALLY SIGNED> By: Jay Bryan MD, MERGED WITH [facility] 09/24/20 0726 D: 12/1406 06 Jay Bryan MD, FACC /EPI
[2020-09-24 07:40] VITALS: BP 149/69
--- NOTE | 2020-09-24 10:43 | NUR ---
PT. DENIES ANY CHEST PAIN THIS AM. CONSENTS SIGNED AND OFF UNIT FOR FOR HEART CATHETERIZATION PROCEDURE. WAS NOP ALL MORNING. REVIEWED RISK'S AND WHAT TO EXPECT WITH HIM AND HE SAID HE WAS "GLAD TO BE GETTING THE PROCEDURE DONE".
--- NOTE | 2020-09-24 12:05 | NUR ---
PEWTER FABRICATOR CALLED PT IS IN CV HOLDING, CLEAR CATH, NO PROCEDURES OR INTERVENTIONS PERFORMED. HAS NOT HAD HIS MYNX INSERTED YET SO WILL BE AWHILE BEFORE BACK ON UNIT.
--- NOTE | 2020-09-24 13:34 | NUR ---
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 LEFT GROIN IS STBALE, NO HEMATOMA, SOFT TO TOUCH, C,D,I AND PULSES ARE 2+ BILATERALLY. BOTH LEGS ARE WARM TO TOCUH AND NO MOTTLING OBSERVED. DENIES ANY CHEST PAIN. NSR ON MONITOR WITH 1ST DEGREE BLOCK, NO ECTOPY OBSERVED. ON ROOM AIR AND EATING HIS LUNCH NOW.
[2020-09-24 13:50] VITALS: BP 170/78
--- NOTE | 2020-09-24 14:39 | NUR ---
Nutrition: pt admit with CP, SOB. Seen due to high risk screen for poor intake, weight loss. S/P cardiac cath, no intervention done. Wound care following for lower central abdominal wound from haddad cath/ urinary retention. Hx GERD, Barretts esophagus, DM. good BG control. BG 106-144, watches diet at home per . Weights have been stable and po in hospital is documented 70-100% of meals. Poor intake reported prior to admit past 3-4 days and c/o early satiety. GI following. ? gastroparesis as CT showed food retained in stomach. PPI started and no other intervention at present. Pt is actually eating sufficient amounts at present. Low risk.
--- NOTE | 2020-09-24 15:22 | NUR ---
PT IS OFF BEDREST AT THIS TIME. GROIN SITE IS STABLE, NO HEMATOMA, NO MOTTLING ON LEG AND WARM TO TOUCH OVERALL ON BOTH LEGS. DENIES CP, DENIES SOB ON ROOM AIRE. NSR WITH 1ST DEGREE BLOCK AND NO ECTOPY OBSERVED. VANCOMYSCIN TROUGH IS DUE WILL VERIFY LAB IS DRAWING SUCH NOW.
[2020-09-24 15:30] VITALS: BP 173/79
--- NOTE | 2020-09-24 16:33 | NUR ---
Met with patient who recently dc from hospital with home health care. Patient reports he lives in independent apt with . No steps to enter apt. He was working at [employer] but took a leave of absence. works part-time. Patient using a walker at home. He reports he has HH with [facility] but does not care for a therapist with the HH. He is deciding if he wants to change HH companies. 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 Discussed patient to work with therapies and if needed can inquire into rehab at mt once stable. Patient in agreement. PCP Dr Gomez.
--- NOTE | 2020-09-24 16:43 | NUR ---
ANTIBIOTICS IN FOR THE DAY, DENIES ANY DISCOMFORT AT THIS TIME. HEAD OF BED UP TO 50 DEGREES. ALL BLOOD PRESSURE MEDS GIVEN POST PROCEDURE HE STARTS TO RUN HIGH HIS BASELINE.
--- NOTE | 2020-09-24 17:09 | CATHLAB ---
[facility] [place] [address] INVASIVE PROCEDURE REPORT Name: ANN TREVINO Room #: 218-P ADM IN M.R.#: [id number] Admission: 09/21/20 Attend Phys: Royer Cronin MD Discharge: Date of : 44 Report #: [id number] THIS REPORT FOR: cc: Chidi Gomez Steven F. DO Mancuso, Gerald M. MD [facility] ~ APPROVED REPORT Study performed: 09/24/2020 10:51:43 Patient Details Patient Status: In-Patient Room #: 218 The patient is a 75 year-old male Event Personnel Shayan Obrien Graves Registration Specialist, Tawnya Huang RTR Monitor, Jessica Fan RN RN, Luzmaria Ramirez RT(R)() Scrub Procedures Performed Art Access - L femoral artery* Left Heart Cath w/or w/o Coronaries [id number] [facility] Aortogram Abdominal Peripheral Angio 430047 Hemostasis w/ Mynx 44542 Initial Mod Sed Same Phys/QHP Gr5y 724257 65888 Mod Sed Same Phys/QHP Ea 466378 Procedure Narrative The Left Groin^ was infiltrated with 1% Lidocaine subcutaneous anesthesia. A PINNACLE 6FR Sheath #[id number] sheath was inserted into the LFA^. Coronary angiography was performed using coronary diagnostic catheters. The right coronary system was accessed and visualized with a JR4 catheter. The left coronary system was accessed and visualized with a JL4 catheter. The left ventricle was accessed and visualized with a PIGTAIL catheter. Left ventriculogram was performed in 30 degree projection. An aortogram of the abdominal aorta was performed. Pre-demployment femoral angiogram was performed . Closure device was deployed with a Fr MYNX CONTROL 6F/7F L#[id number]. The patient tolerated the procedure well and there were no complications associated with the procedure. There was no hematoma. Intraoperative Conscious Sedation Sedation start time: 11:26 Case end Time: 12:32 Fentanyl 100 mcg Versed 2 mg [facility] [address] [place] [address] INVASIVE PROCEDURE REPORT Name: ANN TREVINO Room #: 218-P [facility] IN [facility].#: [id number] Admission: 09/21/20 Attend Phys: Royer Cronin MD Discharge: Date of : 44 Report #: [id number] Fluoro Time: 2.40 minutes Dose: DAP 6641.00 cGycm2 825 mGy Contrast Type and Amount: Omnipaque 105 ml Hemodynamics The aortic pressure is 145/64 mmHg with a mean of 50 mmHg. The left ventricular pressure is 145/2 mmHg with a mean of mmHg. The left ventricular end diastolic pressure is 8 mmHg. Conclusion #1. Normal left jugular size and systolic function EF 65%. #2 abdominal aortogram revealing no significant aneurysm brisk flow renal arteries appear to be widely patent. #3 left main mildly disease giving rise to LAD and circumflex. #4 LAD with an eccentric 30 to 40% lesion off the left main with mild distal disease. It wraps the apex. #5 circumflex OM is dominant vessel with mild irregularities. #6 small nondominant right coronary no occlusive disease. Recommendations and plan: Continue aggressive risk factor modification no indication for coronary intervention. <ELECTRONICALLY SIGNED> By: Shayan Obrien MD, FACC 09/24/201708 08 08 Shayan Obrien MD, FACC /INF
[2020-09-24 19:34] VITALS: BP 149/82
[2020-09-24 23:42] VITALS: BP 155/64
--- NOTE | 2020-09-25 04:42 | NUR ---
SLEPT MOST OF SHIFT. DENIES COMPLAINTS OF CHEST PAIN ONLY TENDER AT LEFT GROIN SITE. WORKING ON GOALS AND PLAN OF CARE FOR NOC. AWAITING PT/OT TO WORK WITH HIM TODAY. PROGRESSING SLOWLY TOWARDS DISCHARGE GOALS. CONTINUE TO ASSES CLOSELY.
[2020-09-25 05:04] VITALS: BP 164/64
[2020-09-25 08:07] VITALS: BP 150/55
[2020-09-25 09:11] LABS: HEMATOCRIT 40.3 % (42.0-52.0); HEMOGLOBIN 12.9 gm/dL (14.0-18.0); MCV 81.2 fL (80.0-100.0); RBC 4.97 mil/uL (4.50-6.00); RDW 16.1 % (10.5-14.5)
[2020-09-25 09:21] LABS: CALCIUM 9.4 mg/dL (8.5-10.1); CREATININE 1.1 mg/dL (0.7-1.3); POTASSIUM 3.8 mmol/L (3.5-5.1)
[2020-09-25 11:18] VITALS: BP 125/51
--- NOTE | 2020-09-25 13:07 | HC ---
[facility] [place] [address] CONSULTATION Name: ANN TREVINO Room #: 218-P ADM IN M.R.#: [id number] Admission: 09/21/20 Attend Phys: Royer Cronin MD Discharge: Date of : 44 Report #: [id number] THIS REPORT FOR: cc: Chidi Gomez,Sid Greco MD ~ DATE OF SERVICE: 09/22/2020 CHIEF COMPLAINT: Surgical wound to the suprapubic region. HISTORY OF PRESENT ILLNESS: This is a 75-year-old male patient with whom I am familiar from recent hospitalization, who presented to the hospital with shortness of breath and intermittent chest pain. He is having ongoing dyspnea and is being worked up for this presently. I have been asked to see him with regard to a surgical wound in the suprapubic region following urological procedure. He denies any significant pain associated with that. PAST MEDICAL HISTORY: Positive for history of kidney stone with stent placement in 1977, lumbar laminectomy in 1986, hypertension, rotator cuff and tooth repair in 2009, cholecystectomy in 2011, a left percutaneous nephrolithotomy tube was placed in 2012 with lithotripsy in 2012. He had a more recent procedure resulting in a nonhealing surgical wound in the suprapubic region. He has diet-controlled diabetes, Nix esophagus, and hypothyroidism. His primary care physician, Dr. Chidi Gomez. SOCIAL HISTORY: Negative for alcohol or tobacco use. FAMILY HISTORY: Noncontributory. MEDICATIONS: Include lisinopril, vitamin E, omeprazole, tamsulosin, metoprolol, sulindac, levothyroxine, ibuprofen, ferrous sulfate, cyanocobalamin, ascorbic acid, and cholecalciferol. ALLERGIES: No known drug allergies. REVIEW OF SYSTEMS: CONSTITUTIONAL: The patient denies fever, chills or weight loss. NEUROLOGICAL: The patient denies focal weakness, numbness or tingling. EYES: The patient denies visual changes, redness, or drainage. ENT: The patient denies earache, nasal drainage, sore throat. CARDIOVASCULAR: The patient does complain of some diaphoresis, intermittent chest pain. Denies palpitations. PULMONARY: The patient complains of shortness of breath, especially with exertion and orthopnea. GASTROINTESTINAL: The patient denies nausea, vomiting, diarrhea or abdominal [address] [address] CONSULTATION Name: ANN TREVINO Room #: 218-P [facility] IN ..#: [id number] Admission: 09/21/20 Attend Phys: Royer Cronin MD Discharge: Date of : 44 Report #: [id number] pain. He does have a suprapubic wound. GENITOURINARY: The patient denies frequency of urination. ORTHOPEDIC: The patient has some swelling in the extremities. Other systems in a 14-point review of systems are negative. PHYSICAL EXAMINATION: VITAL SIGNS: Include temperature 36.3, pulse 75, respiratory rate 19, blood pressure 132/77. GENERAL: This is a chronically ill-appearing male patient who appears to be in moderate discomfort. HEENT: Head normocephalic. Nose and throat are clear. NECK: Supple. LUNGS: Diminished. HEART: Regular without murmur. ABDOMEN: Demonstrates the surgical wound in the suprapubic region within the abdominal folds. It is relatively clean and granulating a small amount of suture material palpable. LABORATORY DATA: Serum sodium 139, potassium 4.1, chloride 103, CO2 of 25, BUN 21, creatinine 1.1, glucose is 138. White blood cell count 7.4 with a hemoglobin of 12.4. CLINICAL IMPRESSION: 1. Surgical wound in the suprapubic region. 2. Acute dyspnea likely congestive heart failure. 3. Diabetes mellitus, diet controlled. RECOMMENDATIONS: At this point in time, recommend silver alginate packing and bordered foam to be changed daily. He will need ongoing nutritional support. He is scheduled to see his urologist after [place], certainly will need to keep this appointment regarding ongoing care issues. I appreciate being asked to see him in consultation. <ELECTRONICALLY SIGNED> By: Sid Galvan MD 09/25/20 1307 0809 0826 Sid Galvan MD /nt
--- NOTE | 2020-09-25 14:11 | NUR ---
Patient accepted to 5N he is agreeable to stay in acute rehab for 6 days. at bedside. Alerted she needs to bring clothes for rehab unit.
[2020-09-25] MEDS ORDERED: TYLENOL325 MG PO (14:41)
[2020-09-25] MEDS ORDERED: NORVASC10 MG PO (14:41)
[2020-09-25] MEDS ORDERED: ENOXAPARIN40 MG/0.1 SUBQ (14:41)
[2020-09-25] MEDS ORDERED: LIPITOR10 MG PO (14:41)
[2020-09-25] MEDS ORDERED: BENICAR20 MG PO (14:41)
[2020-09-25] MEDS ORDERED: ASPIRIN EC81 M1 PO (14:41)
[2020-09-25] MEDS ORDERED: HYDRALAZINE 5050 MG PO (14:41)
[2020-09-25] MEDS ORDERED: KEFLEX500 M1 PO (14:48)
[2020-09-25 15:37] VITALS: BP 134/51
--- NOTE | 2020-09-25 16:07 | NUR ---
ASSESSMENT CHARTED, DENIES ANY DISOCMFORT AND VSS. EMOTIONAL ABOUT NOT GOING HOME AND VISITED WITH . LUQUE INPLACE TO DD AND SUPRA PUPIC WOUND CARE COMPLETED. DISCHARGE TO REHAB.
--- NOTE | 2020-09-26 08:28 | HC ---
[facility] [place] [address] CONSULTATION Name: ANN TREVINO Room #: 218-P [facility] IN .R.#: [id number] Admission: 09/21/20 Attend Phys: Royer Cronin MD Discharge: 09/25/20 Date of : 43 Report #: [id number] THIS REPORT FOR: cc: Chidi Gomez Steven F. DO McElhinney, Christian C. MD ~ DATE OF SERVICE: 09/23/2020 HISTORY OF PRESENT ILLNESS: The patient is a 75-year-old male with a recent history of shortness of breath and chest discomfort, symptoms tend to be worse with exertion. He denies any fevers or chills. REASON FOR GI CONSULTATION: The patient underwent on admission, CT arteriogram of the chest, which showed no evidence of pulmonary embolus. Cardiomegaly was noted. Wedge shaped area of increased density within the right middle lobe of the lung suggesting atelectasis or possibility of pneumonitis, large amount of material was noted within the stomach, fatty liver changes were also noted. The patient denies any history of nausea or vomiting or dysphagia. He does have a history of diabetes, which he states he is not on any medications for and has been controlled fairly well with diet. He has undergone 2 upper endoscopies by myself, the first one being in 2016 for reflux. He had started PPI therapy just prior to that endoscopy. No esophagitis was noted; however, short segment of Nix's was seen with no dysplasia, otherwise normal. Colonoscopy at that same time showed diverticulosis, hemorrhoids and several tubular adenomatous polyps removed. He had a repeat upper endoscopy by myself in 2017. Repeat biopsies were negative for Nix's at that time. Since then, he has been taking omeprazole on a daily basis. He states his bowel movements have been normal. He denies any heartburn symptoms. Denies any blood in his stools. His weight has been fairly stable. He does report lower extremity edema. He also has a history of bladder abnormalities and has undergone several different surgeries recently. He does have an open wound, is being treated suprapubically. He is on antibiotics at this time. A Perez catheter was placed. He states the original surgery was for a bladder stone and a reconstructive surgery was later performed. He was hospitalized on 09/12/2020 of this year following the second surgery. PAST MEDICAL HISTORY: Diabetes, previous history of renal stone, history of laparoscopic cholecystectomy in 2011, lumbar laminectomy. He has had a renal stent placed at one time, history of gastroesophageal reflux disease with Nix's esophagus as described above, history of colon polyps, hypothyroidism, arthritis, previous rotator cuff repair, hypertension, obesity. Recent bladder surgery with removal of fat and reconstruction of the penis. This was per the patient at [facility]. MEDICATIONS: Norvasc, ciprofloxacin, Flagyl, vitamin E, omeprazole, he takes on [address] [address] CONSULTATION Name: ANN TREVINO Room #: 218-P [facility] IN .R.#: [id number] Admission: 09/21/20 Attend Phys: Royer Cronin MD Discharge: 09/25/20 Date of : 43 Report #: [id number] a daily basis. Tamsulosin, metoprolol, levothyroxine, iron, vitamin B12, vitamin C, vitamin D. ALLERGIES: No known drug allergies. REVIEW OF SYSTEMS: As per HPI. FAMILY HISTORY: Negative for colon cancer. SOCIAL HISTORY: Denies any tobacco or alcohol use. PHYSICAL EXAMINATION: VITAL SIGNS: Temperature is 98.6, pulse 73, blood pressure 155/87, respiratory rate is 18 GENERAL: He is alert and oriented x 3, in no acute distress. HEENT: Sclerae nonicteric. Oropharynx clear. NECK: Supple, without lymphadenopathy. CARDIOVASCULAR: Regular rate and rhythm. CHEST: Clear to auscultation bilaterally. ABDOMEN: Soft. He is nontender, nondistended, normoactive bowel sounds. There is a dressing in the suprapubic area. Perez catheter is in place. He has got Trace edema of his lower extremities bilaterally. LABORATORY DATA: Sodium 139, potassium 4.2, chloride 105, bicarbonate 25, BUN 17, creatinine 1.1, glucose 147, AST 20, lipase 49, total bili 0.5, alk phos 74, ALT 42, total protein 6.0, albumin 2.5. Troponin yesterday was less than 0.06. BNP is 1637. WBC is 8.0, hemoglobin 12.0, MCV 79.4, platelet count is 246. COVID test was negative. UA was negative. KUB yesterday shows mild gaseous distention of the stomach. No radiographic evidence of bowel obstruction. ASSESSMENT AND PLAN: 1. History of gastroesophageal reflux disease with Nix's esophagus. The patient has been taking PPI therapy for approximately 3 years. He denies any nausea, vomiting or dysphagia. CT arteriogram of the chest on admission shows food within the stomach. This suggests the possibility of gastroparesis, especially in the setting of diabetes; however, the patient denies any nausea or vomiting at this time. KUB showed mild distention of the stomach. I would recommend restarting a diabetic diet at this time and observing the patient is to undergo a cardiac catheterization tomorrow for his chest pain and dyspnea on exertion. If he has symptoms of nausea and vomiting in the future, could consider gastric emptying time. He does report some mild early satiety. We would continue long-term PPI therapy. 2. Fatty liver changes noted on CT scan. Liver function tests are all normal. The patient has had a previous cholecystectomy. [facility] [address] [place] [address] CONSULTATION Name: ANN TREVINO Room #: 218-P [facility].#: [id number] Admission: 09/21/20 Attend Phys: Royer Cronin MD Discharge: 09/25/20 Date of : 43 Report #: [id number] Thank you for allowing me to participate in his care. <ELECTRONICALLY SIGNED> By: Lincoln Peoples MD 09/26/20 0828 1117 1931 Lincoln Peoples MD /nt
--- NOTE | 2020-09-26 10:33 | HC ---
[facility] [place] [address] CONSULTATION Name: ANN TREVINO Room #: 218-P [facility] IN M.R.#: [id number] Admission: 09/21/20 Attend Phys: Royer Cronin MD Discharge: 09/25/20 Date of : 43 Report #: [id number] THIS REPORT FOR: cc: Chidi Gomez Steven F. DO Smithson, David G. MD ~ DATE OF SERVICE: 09/25/2020 HISTORY OF PRESENT ILLNESS: The patient is a 75-year-old white male admitted to [facility] on 09/21/2020 with increased shortness of breath and chest pain with exertion. He was thought to have angina versus congestive heart failure. He underwent cardiac catheterization, which showed no indication for intervention. He is to be medically managed. He has hypertension, elevated cholesterol, lower extremity edema, diabetes mellitus, GERD, exogenous obesity. There is a question of gastroparesis and Gastroenterology has been involved assisting along with Cardiology. Geriatrics is also seeing him. He is on PPI daily. He is also being treated for pneumonia. 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 He has an indwelling Perez catheter. We are seeing him in rehabilitation medicine consultation. PAST MEDICAL HISTORY: Prior medical history includes kidney stone with stent placement, lumbar laminectomy, hypertension, right rotator cuff repair, laparoscopic cholecystectomy, left renal stent and lithotripsy, EGD, right meniscus repair, controlled GERD, hypothyroidism, and arthritis. MEDICATIONS: Please see the full medication listing. ALLERGIES: No known drug allergies. SOCIAL HISTORY: The patient lives with his in an apartment. No stairs. Premorbid walker ambulator, was independent for ADLs. He was working at [email or web address] and his works part-time. REVIEW OF SYSTEMS: Did not offer any current complaints of chest pain, shortness of breath or abdominal discomfort. PHYSICAL EXAMINATION: GENERAL: The patient is a pleasant 75-year-old overweight white male, in no obvious distress. VITAL SIGNS: Last recorded temperature 98, pulse 77, respirations 16, and blood pressure 125/51. He is alert, pleasant, a little quiet, somewhat soft spoken, follows basic commands without difficulty. Facies are symmetric. HEENT: Appeared to be benign. NEUROLOGIC: Cranial nerves appeared grossly intact. He has some decreased [facility] [address] [place] [address] CONSULTATION Name: ANN TREVINO Room #: 218-P [facility] IN [facility]#: [id number] Admission: 09/21/20 Attend Phys: Royer Cronin MD Discharge: 09/25/20 Date of : 43 Report #: [id number] bilateral shoulder range of motion in abduction and forward flexion, which is premorbid. Strength, I would grade him at a 4-/5. He has the indwelling Perez catheter. He has exogenous obesity. Lower extremities strength is probably a grade 4- to 3+/5. DTRs are trace to 1. No obvious focal sensory decrease. No focal calf swelling. He is min assist with sit to stand, min assist to ambulate 50 feet with a front-wheeled walker. He gets increased shortness of breath and heart rate up to the 120s with activity. OT notes that toileting is max assist. Toilet transfers are mod assist. ASSESSMENT: A 75-year-old male with the following problem list: 1. Medical complex with generalized debilitation. 2. Coronary artery disease, status post angiogram with no intervention needed. 3. Pneumonia. 4. Diabetes mellitus type 2. 5. Hypertension. 6. Suprapubic wound getting wound care. 7. Acute urinary retention, status post Perez catheter placement. 8. Gastroesophageal reflux disease. 9. Question of gastroparesis. 10. Exogenous obesity. PLAN: We are assessing the patient for a potential short acute in-hospital inpatient rehabilitation stay. We will be glad to follow along with you regarding his rehab therapy needs. <ELECTRONICALLY SIGNED> By: Teto Coronel MD 09/26/20 1033 [id number] [id number] Teto Coronel MD /nt
== END 2020-09-25 16:19 | DRG 286 ==
LOC: ER 14:03 → 2N 17:17 → EROBS 17:17 → 2N 09-22 04:57
PROVIDERS: Emergency Medicine; Internal Medicine; Nurse Practitioner Adult Health; ADMIT Hospitalist; ATTEND Hospitalist
PROC: B2111ZZ Fluoroscopy of Multiple Coronary Arteries using Low Osmolar Contrast (ICD-10-PCS; principal; 2020-09-24)
PROC: B41F1ZZ Fluoroscopy of Right Lower Extremity Arteries using Low Osmolar Contrast (ICD-10-PCS; principal; 2020-09-24)
PROC: B4101ZZ Fluoroscopy of Abdominal Aorta using Low Osmolar Contrast (ICD-10-PCS; principal; 2020-09-24)
PROC: B2151ZZ Fluoroscopy of Left Heart using Low Osmolar Contrast (ICD-10-PCS; principal; 2020-09-24)
PROC: B41G1ZZ Fluoroscopy of Left Lower Extremity Arteries using Low Osmolar Contrast (ICD-10-PCS; principal; 2020-09-24)
PROC: 4A023N7 Measurement of Cardiac Sampling and Pressure, Left Heart, Percutaneous Approach (ICD-10-PCS; principal; 2020-09-24)
DX: I25.110 Atherosclerotic heart disease of native coronary artery with unstable angina pectoris (principal); J18.9 Pneumonia, unspecified organism; E43 Unspecified severe protein-calorie malnutrition; I50.33 Acute on chronic diastolic (congestive) heart failure; N17.9 Acute kidney failure, unspecified; I13.0 Hypertensive heart and chronic kidney disease with heart failure and stage 1 through stage 4 chronic kidney disease, or unspecified chronic kidney disease; M96.89 Other intraoperative and postprocedural complications and disorders of the musculoskeletal system; E03.9 Hypothyroidism, unspecified; K22.70 Barrett's esophagus without dysplasia; R33.9 Retention of urine, unspecified; K21.9 Gastro-esophageal reflux disease without esophagitis; M19.90 Unspecified osteoarthritis, unspecified site; K76.0 Fatty (change of) liver, not elsewhere classified; E78.00 Pure hypercholesterolemia, unspecified; E66.09 Other obesity due to excess calories; N18.30 Chronic kidney disease, stage 3 unspecified; E11.22 Type 2 diabetes mellitus with diabetic chronic kidney disease; K52.9 Noninfective gastroenteritis and colitis, unspecified; N40.1 Benign prostatic hyperplasia with lower urinary tract symptoms; R33.8 Other retention of urine; Y83.8 Other surgical procedures as the cause of abnormal reaction of the patient, or of later complication, without mention of misadventure at the time of the procedure; Y82.8 Other medical devices associated with adverse incidents; D50.9 Iron deficiency anemia, unspecified; I08.0 Rheumatic disorders of both mitral and aortic valves; Z20.828 Contact with and (suspected) exposure to other viral communicable diseases; Z79.899 Other long term (current) drug therapy; Z90.49 Acquired absence of other specified parts of digestive tract; Z68.35 Body mass index [BMI] 35.0-35.9, adult; Y92.89 Other specified places as the place of occurrence of the external cause
CPT/HCPCS: 10081

== ENCOUNTER 2020-09-25 14:51 | Inpatient (IN) | payer OTHER ==
[~2020-09-25] VITALS: Ht 180.3 cm; Wt 116.1 kg
--- NOTE | ~2020-09-25 | PLAN ---
[facility] [place] [address] REHAB UNIT PLAN OF CARE Name: ANN TREVINO Room #: 512-P ADM IN M.R.#: [id number] Admission: 09/25/20 Attend Phys: Teto Coronel MD Discharge: Date of : 44 Report #: [id number] THIS REPORT FOR: cc: Chidi Gomez Steven F. DO Smithson, David G. MD ~ DATE OF SERVICE: 09/27/2020 PROGRESS NOTE/OVERALL PLAN OF CARE SUBJECTIVE: The patient is seen back today in followup. He is in no distress. Last recorded temperature 97.9, pulse 75, respirations 18, blood pressure 128/54. He is alert. He has the indwelling Perez catheter. He has no focal calf swelling. His transfers are min assist and gait is min assist to 150 feet front-wheeled walker. He is 12 steps up and down with contact guard assistance. In occupational therapy, he is max assist, lower body dressing with mod assist bathing. Functional mobility is mod assist. Toilet transfers are mod assist. ASSESSMENT: 1. Medical complexity with generalized debilitation. 2. Coronary artery disease, status post angiogram without intervention needed. 3. Pneumonia. 4. Diabetes mellitus type 2. 5. Hypertension. 6. Lower abdominal wound, suprapubic, getting wound care. 7. Acute urinary retention, status post Perez catheter placement. 8. Gastroesophageal reflux disease. 9. Question of gastroparesis. 10. Obesity. PLAN: The patient is involved in the inpatient rehabilitation program with the multiple incident response consultant physicians involvement. The overall plan of care is based on the preadmission screen and information garnered from therapy assessments. 1. Estimated length of stay is probably 7-10 days. 2. Medical prognosis is reasonably good. 3. Anticipated interventions includes the interdisciplinary acute inpatient rehabilitation program. 4. Anticipated functional outcomes would be for the patient to become modified independent with transfers, mobility and ADLs. His did assist him some with lower extremity dressing including especially shoes and socks. 5. Discharge destination is back to the home setting with his . 6. Expected therapy by discipline includes PT and OT 1-1/2 hours per day each five days a week. The patient's prognosis for significant practical improvement within a [address] [address] REHAB UNIT PLAN OF CARE Name: URIELANN Babak Room #: 512-P [facility] IN [facility]#: [id number] Admission: 09/25/20 Attend Phys: Teto Coronel MD Discharge: Date of : 44 Report #: [id number] reasonable period of time appears good. Given the patient's complex medical condition and risk of further medical complication, rehabilitation services could not be safely provided at the lower level of care such as a fci facility. We do have the multiple incident response consultant physicians that are continuing to follow with his multiple medical comorbidities. By: [id number] Teto Coronel MD /ASHWINI
--- NOTE | ~2020-09-25 | H ---
[facility] [place] [address] HISTORY AND PHYSICAL Name: ANN TREVINO Room #: 512-P ADM IN M.R.#: [id number] Admission: 09/25/20 Attend Phys: Teto Coronel MD Discharge: Date of : 44 Report #: [id number] THIS REPORT FOR: cc: Chidi Gomez Steven F. DO Smithson, David G. MD ~ DATE OF SERVICE: 09/25/2020 HISTORY OF PRESENT ILLNESS: This is a 75-year-old white male who was originally admitted to [facility] on 09/11/2020 with increased shortness of breath and chest pain with exertion. He was thought to have angina versus congestive heart failure. He underwent cardiac catheterization, which showed no indication for intervention. He is to be medically managed. He has hypertension, elevated cholesterol, lower extremity edema, diabetes mellitus, GERD, exogenous obesity. There was a question of gastroparesis and Gastroenterology has been involved along with Cardiology assisting. Geriatrics has also been seeing him. He is on a PPI daily. He is being treated for pneumonia. 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 He has had an indwelling Perez catheter. He was noted to have medical complexity with generalized debilitation and has been admitted for acute in-hospital inpatient rehabilitation. PAST MEDICAL HISTORY: Includes kidney stone with stent placement, lumbar laminectomy, hypertension, right rotator cuff repair, laparoscopic cholecystectomy, left renal stent and lithotripsy, EGD, right meniscus repair, controlled GERD, hypothyroidism, and arthritis. MEDICATIONS: Please see the full medication listing. ALLERGIES: No known drug allergies. SOCIAL HISTORY: The patient lives with his in an apartment. No stairs. Premorbid walker ambulator, was independent for ADLs. He was working at [employer] and his works part-time. REVIEW OF SYSTEMS: No current complaints of chest pain, shortness of breath or abdominal discomfort. PHYSICAL EXAMINATION: GENERAL: A 75-year-old pleasant, overweight white male in no obvious distress. VITAL SIGNS: Last recorded temperature 98.9, pulse 93, respirations 20, and blood pressure 132/66. NEUROLOGIC: He is alert. HEENT: Appeared to be benign. Facies were symmetric. Follows basic commands [facility] [address] [place] [address] HISTORY AND PHYSICAL Name: ANN TREVINO Room #: 512-P [facility] IN M.R.#: [id number] Admission: 09/25/20 Attend Phys: Teto Coronel MD Discharge: Date of : 43 Report #: [id number] without difficulty. CHEST: Sounded clear with some decreased breath sounds throughout. CARDIOVASCULAR: Regular rate and rhythm. ABDOMEN: Obese, bowel sounds positive, nontender. GENITOURINARY AND RECTAL: Deferred. EXTREMITIES: He has functional range of motion with some decreased at end range of both shoulders, which is premorbid and abduction and forward flexion. Strength is grade 4-/5. Lower extremities 3+ to 4-/5. DTRs are trace to 1. No obvious focal sensory decrease. He has been min assist with sit to stand, tends to get short of breath with increased activity. Toilet transfers have been noted at a mod assist. He has a Perez catheter in place. ASSESSMENT: A 75-year-old white male with the following problem list: 1. Medical complexity with generalized debilitation. 2. Coronary artery disease, status post angiogram with no intervention needed. 3. Pneumonia. 4. Diabetes mellitus type 2. 5. Hypertension. 6. Lower abdominal wound, getting wound care. 7. Acute urinary retention, status post Perez catheter placement. 8. Gastroesophageal reflux disease. 9. Question of gastroparesis. 10. Obesity. PLAN: The patient has been admitted for acute in-hospital inpatient rehabilitation. Please see the patient's previous and current functional status. As far as risk of complications, he does have the multiple medical comorbidities as noted above. Initial plan of care involves the interdisciplinary acute inpatient rehabilitation program. Measurable functional goals would be for the patient to become modified independent with transfers, mobility and ADLs, so that he can hopefully return back to his prior living situation. Prognosis is reasonably good with estimated length of stay probably around 7-10 days. Potential barriers would include his multiple medical comorbidities and decreased functional status. The patient meets diagnostic criteria for an acute in-hospital inpatient rehabilitation stay. He meets the medical necessity criteria and we will have the multiple cardiology clinical consultant physicians continue to follow. He does have the tolerance for therapies and has appropriate discharge goals back to the home setting. By: [id number] Teto Coronel MD /nt
[~2020-09-25 14:51] MED LIST changes: +ASPIRIN EC81 M1 PO; +BENICAR20 MG PO; +ENOXAPARIN40 MG/0.1 SUBQ; +HYDRALAZINE 5050 MG PO; +KEFLEX500 M1 PO; +LEVOFLOXACIN750 MG PO; +LIPITOR10 MG PO; +TYLENOL325 MG PO
[2020-09-25 19:51] VITALS: BP 137/53
--- NOTE | 2020-09-25 20:21 | NUR ---
ASSUMED CARE OF PT AT 1600 WHEN PT BROUGHT TO UNIT, RECEIVED REPORT FROM MEGHANN GOODSON PRIOR TO TRANSFER. PT DENIES PAIN AND PARTICIPATED IN SCHEDULED THERAPIES. CONSULTS CALLED, CONSENTS SIGNED, ADMISSION EDUCATION COMPLETED. HEIGHT, WEIGHT AND VITAL SIGNS OBTAINED. ADMISSION HX AND ASSESSMENT COMPLETED. WOUND TO SUPERPUBIC AREA NOTED, PT STATES THAT IT IS FROM SURGERY PRIOR TO ADMISSION. PICTURES NOT OBTAINED AND NIGHT NURSE AWARE AND WILL ATTEMPT TO OBTAIN. ACCU CHECKS COMPLETED AT DINNER. FALL PRECAUTIONS IN PLACE AND NURSING WILL CONTINUE TO MONITOR.
--- NOTE | 2020-09-26 00:57 | NUR ---
ASSUMED CARE OF PT AT 1915 ON 09/25/20. PT IS A&OX4. IS ON ROOM AIR. DENIES PAIN. IS UP WITH 1 ASSIST, GB, WALKER. FALL PRECAUTIONS & HOURLY ROUNDING CONTINUED THIS SHIFT. LABS REVIEWED. VITALS ASSESSED. PT IS LUQUE IN PLACE FOR RETENTION. HAS WOUND IN SUPRAPUBIC AREA. DRSG INTACT. RAC SALINE LOCKED. HAS BILAT LE EDEMA. PT IS CURRENTLY SLEEPING WITH MASK IN PLACE. CALL LIGHT WITHIN REACH. IS ABLE TO TURN SELF. WILL CONTINUE TO MONITOR.
[2020-09-26 05:45] LABS: HEMATOCRIT 34.9 % (42.0-52.0); HEMOGLOBIN 11.4 gm/dL (14.0-18.0); MCHC 32.5 g/dL (28.0-37.0); MCV 79.9 fL (80.0-100.0); RBC 4.37 mil/uL (4.50-6.00); WBC 8.1 thou/uL (4.0-11.0)
[2020-09-26 05:49] LABS: CREATININE 1.3 mg/dL (0.7-1.3)
[2020-09-26 07:15] VITALS: BP 132/66
--- NOTE | 2020-09-26 11:33 | NUR ---
Nutrition: pt transferred to rehab unit with medical complexity, general debility/CHF. Pt assessed on 09/24 in CCU. Consult received related to poor intake however pt eating 100% majority meals per chart review/nsg report on carb controlled heart healthy diet. Prior complaint of early satiety and GI following for question of gastroparesis but no interventions planned other than PPI start. PMH: GERD, Barretts esophagus, DM, Started on PPI. BG 87- 199. No nutrition concerns at present.
--- NOTE | 2020-09-26 12:39 | NUR ---
pt admitted to ARU with dx of medical complexity w/general debilitation/CHF. pt lives at home w/spoue. states his apt is on the 1st floor. pthas 4 children, but they all live out of time. 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 pt is currently on a leave from his job, but states he has an appointment in a couple of weeks and hopes to be released to rtrn to work, so not sure if he wants to cont w/hh. cm states we can discuss d/c planning at a lter date. pt has a walker. pt independent w/cares and drives. pt current w/[facility]. cm to cont to follow.
--- NOTE | 2020-09-26 13:20 | NUR ---
ASSUMED CARE AT 0700. PT IS ALERT AND ORIENTATED. DENIES ANY PAIN, SHORT OF AIR, CHEST PAIN OR DIZZINESS. SLEPT FAIRLY WELL. APPETITE GOOD, ATE 100% OF HIS MEALS. UP WITH MIN ASSIST USING THE WALKER. DRESSING TO SUPRAPUBIC SITE INTACT WITH PACKING. SLIGHT ODOR NOTED. NO WOUND CARE ORDERS YET. DR DESIR NOTIFIED YESTERDAY. PT REPORTED HAD A RECENT BLADDER SURGERY ON 08/08/20. LUQUE IN SITU TO DD WITH CLEAR YELLOW URINE. PARTICIPATING IN THERAPY AND PROGRESSING FAIRLY WELL. L GROIN DRESSING INTACT POST ANGIOGRAM. DENIES ANY NUMBNESS OR TINGLING. CONT TO MONITOR.
[2020-09-26 20:00] VITALS: BP 132/63
--- NOTE | 2020-09-27 01:44 | NUR ---
SUPRAPUBIC OPTIFOAM DRESSING INTACT. LEFT GROIN DRESSING FROM RECENT ANGIOGRAM REMOVED AND REPLACED WITH BANDAID. RIGHT AC IV SITE REMOVED. LUQUE TO DD IN PLACE FOR RETENTION ISSUE. TOLERATING PILLS WITH WATER. PLEASANT, ORIENTED, QUIET
[2020-09-27 07:53] VITALS: BP 128/54
--- NOTE | 2020-09-27 11:36 | NUR ---
ASSUMED CARE AT 0700. PT SLEPT FAIRLY WELL. DENIES ANY WOUND INC PAIN OR CHEST PAIN. APPETITE GOOD. HAD A BM TODAY. LUNGS CLEAR. LUQUE INTACT TO DD. PT REQ FOR LUQUE REMOVAL AND ANNALISE ASSEMBLY AND PACKING SUPERVISOR NOTIFIED, TO CALL PT'S UROLOGIST WITH RECOMMENDATIONS. WOUND CARE TO SUPRAPUBIC AREA DONE. PARTICIPATING IN THERAPY AND PROGRESSING WELL. NO OTHER CONCERNS. CONT TO MONITOR.
--- NOTE | 2020-09-28 00:23 | NUR ---
Assumed care on 09/27/20 @ 19:15, in bed awake alert and oriented x4. Denies pain, dsg in super pubic region is c/d/i. Perez catheter draining gold urine to gravity, 750 output emptied @ 2130. Takes meds whole with thin liquids. Oxygen sat 96% on room air. Afebrile 98.1 F. Denies additional needs. Will continue to monitor as per unit protocol.
[2020-09-28 08:00] VITALS: BP 128/47
--- NOTE | 2020-09-28 14:06 | NUR ---
ASSUMED CARE OF PT AT 0700. PT IS A&OX4 AND VITAL SIGNS ARE STABLE. PT DENIES PAIN AND PARTICIPATED IN CARES WITH NURSING. VISITOR AT THE BEDSIDE THIS SHIFT AND WAS INFORMED OF THE VISITATION AND MASK POLICY DUE TO HAVING REMOVED HER MASK WHILE ON THE UNIT. LUQUE CATHETER IN PLACE, DRAINING APPROPRIATELY. NURSING TO CALL UROLOGY ABOUT POSSIBLE REMOVAL. DRESSING TO SUPERPUBIC AREA CHANGED PER ORDERS. FALL PRECAUTIONS IN PLACE AND NURSING WILL CONTINUE TO MONITOR.
[2020-09-28 20:00] VITALS: BP 142/57
--- NOTE | 2020-09-29 00:58 | NUR ---
PT ALERT AND ORIENTED X 4. LUQUE PATENT DRAINING ADEQUATE AMTS CLEAR DARK YELLOW URINE. PT DENIES PAIN OR DISCOMFORT. BED ALARM ON FOR SAFETY. PT APPEARS TO BE SLEEPING ON HOURLY ROUNDS.
[2020-09-29 07:30] VITALS: BP 128/66
--- NOTE | 2020-09-29 09:55 | NUR ---
ASSUMED CARE AT 0700. PT IS A&O X4. ASSIST X [address]ER[address] LUQUE IN PLACE. WOUND CARE HAS BEEN CHANGED SUPRAPUBIC WITH AQUACEL AND BOARDED FOAM. PT IS PLEASANT. DENIES ANY PAIN, N/V. VSS. FALL PRECAUTION. CALL LIGHT WITHIN REACH. WILL CONTINUE TO MONITOR
[2020-09-29 19:55] VITALS: BP 138/56
--- NOTE | 2020-09-30 02:22 | NUR ---
PT DENIED PAIN SO FAR.DRGS TO HIS SUPRPUBIC AREA DRY AND INTACT.LUQUE CATH TO DD.JAQUAN TO MAKE HIS NEEDS KNOWN.CALL LIGHT WITHIN REACH.
[2020-09-30 05:40] LABS: ABSOLUTE NEUTROPHILS 3.9 thou/uL (1.4-8.2); BASOPHILS 1.2 % (0.0-2.0); EOSINOPHILS 12.5 % (0.0-3.0); HEMATOCRIT 33.6 % (42.0-52.0); HEMOGLOBIN 10.7 gm/dL (14.0-18.0); LYMPHOCYTES 12.7 % (24.0-44.0); MCH 25.9 pg (26.0-34.0); MCHC 31.9 g/dL (28.0-37.0); MCV 81.2 fL (80.0-100.0); PLATELET COUNT 194 thou/uL (150-400); POLYS 66.6 % (36.0-66.0); RBC 4.15 mil/uL (4.50-6.00); WBC 5.8 thou/uL (4.0-11.0)
[2020-09-30 05:59] LABS: ALBUMIN 2.5 g/dL (3.4-5.0); CREATININE 1.1 mg/dL (0.7-1.3); MAGNESIUM 1.9 mg/dL (1.8-2.4); PHOSPHORUS 3.6 mg/dL (2.6-4.7); POTASSIUM 4.1 mmol/L (3.5-5.1); TOTAL BILIRUBIN 0.3 mg/dL (0.2-1.0); TOTAL PROTEIN 6.1 g/dL (6.4-8.2)
[2020-09-30 07:30] VITALS: BP 144/63
--- NOTE | 2020-09-30 12:52 | NUR ---
ASSUMED CARE AT 0700 THIS MORNING. PT. UP SITTING IN RECLINING CHAIR. TOOK WALK WITH THERAPIES THIS MORNING. TOOK SHOWER. SUPRAPUBIC CATH. SITE RE-DRESSED AFTER SHOWER. DR. DUNBAR HERE AND STATED WOULD BE SEEN BY WOUND CARE. DENIES PAIN, N/V. VSS. FALL PRECAUTIONS IN PLACE. CALL LIGHT WITH IN REACH. LUQUE CATHETER IN TACT AND IN PLACE. LUQUE CATHETER IS TO BE KEPT IN PLACE UNTIL SEEN BY THE URIOLOGIST.
[2020-09-30 19:36] VITALS: BP 140/50
--- NOTE | 2020-10-01 03:08 | NUR ---
ASSUMED CARE OF PT AT 1900HRS. PT AOX4 AND LETS NEEDS BE KNOWN. FALL PRECAUTION IN PLACE. PT DENIED PAIN, NAUSEA OR SOA. WOUND IN PANUS WITH DRESSING IN PLACE. LUQUE IN PLACE AND IS PATIENT. PT WAS ABLE TO GET COMFORTABLE AND SLEEP PART OF THE SHIFT. VSS AND NO S/S OF ACUTE DISTRESS. WILL CONTINUE TO MONITOR.
[2020-10-01 07:40] VITALS: BP 152/60
--- NOTE | 2020-10-01 11:23 | NUR ---
ON-GOING ASSESSMENT: PT MAY NEED A VOIDING TRIAL. TEAM CONFERENCE IS TOMORROW AND WILL DETERMINE POSSIBLE DISCHARGE DATE AT TEAM. PLANS TO LIKELY DISCHARGE LATER THIS WEEK. PT WAS IN SERVICE WITH [facility] PRIOR TO ADMISSION, CM FAXED REFERRAL TO [facility] FOR THEM TO FOLLOW AND IF PATIENT NEEDING HH AT DISCHARGE THEY CAN ACCEPT HIM BACK ON SERVICES. CM WILL CONTINUE TO FOLLOW TO ASSIST NEEDED. TENATIVE PLAN TO DISCHARGE LATER THIS WEEK. CM NOTIFIED ERICA JARVIS AT [facility].
--- NOTE | 2020-10-01 18:21 | NUR ---
PATIENT UP IN [facility] FOR MUCH OF TODAY. OT TAUGHT PATIENT AND ABOUT THE LUQUE LEG BAG, AND PER DR. DUNBAR, PT IS TO KEEP LUQUE THROUGHOUT HIS STAY, WITH PLANS FOR FOLLOW UP APPOINTMENT ON 10/08 AT WHICH TIME HE CAN DISCUSS LUQUE REMOVAL WITH IS UROLOGIST. INCISION AREA IS HEALING WITH SMALL AREA OF PINK AND RED TISSUE AT CENTER. AREA CLEANSED WITH NS AND REDRESSED WITH AQUACEL AG AND FOAM DRESSING. PT TOLERATED WELL. DR. DESIR IN TO SEE THE AREA AND NOTED SLOW HEALING. EARLIER IN THE DAY, PT WAS IRRITATED REGARDING THE PLAN FOR THE LUQUE, BUT HE HAD ACCEPTED THIS PLAN BY THE END OF THE DAY, AND WAS POSITIVE REGARDING THE LEG BAG. CALL LIGHT IN REACH AND NO COMPLAINTS AT THIS TIME.
[2020-10-01 19:25] VITALS: BP 139/48
--- NOTE | 2020-10-02 02:35 | NUR ---
PATIENT HAPPY WITH PROGRESS DURING THERAPIES, RESIGNED TO THE FACT THAT HE WILL KEEP LUQUE UNTIL 10/08, LEG BAG OFF AT HS AND SWITCHED TO OVERNIGHT 'LUQUE' BAG. UNDERSTANDS WHAT HIS PILLS ARE FOR
[2020-10-02 07:39] VITALS: BP 146/65
--- NOTE | 2020-10-02 09:43 | NUR ---
ASSUMED CARE At 0700. PATIENT IS ALERT AND ORIENTED X4. PATIENT STALEY'S, MACHINE DESIGN TEACHER ARE EQUAL. LUNGS ARE CLEAR. ABD IS SOFT WITH BSX4. PATIENT HAS DRESSING OVER SUPRAPUBIC AREA. LUQUE TO DD, DRAINING NOEMI COLORED URINE. UP IN THE CHAIR FOR MEALS. PATIENT ATE 100% OF BREAKFAST. FALL AND SAFETY PROTOCOLS IN PLACE. DENIES PAIN. CONTINUES TO PROGRESS SLOWLY TOWARDS D/C GOALS. WILL CONTINUE TO MONITER.
--- NOTE | 2020-10-02 13:23 | NUR ---
Team Conference: Wound care monitoring. gait, 350 ft standby w/walker. pt works part-time and will be able to assist at home. Discharge Plan: d/c home w/HH: RN (cath management) and wound care on . 10/04/20. needs to train w/RN either Thu or for cath and wound management.
[2020-10-02 14:19] VITALS: BP 146/65
--- NOTE | 2020-10-02 16:54 | NUR ---
FAXED REFERRAL TO [facility] FOR RESUMPTION OF CARE AT [place] SPOKE WITH SIMOAN IN INTAKE SHE RECEIVED REFERRAL AND WILL RESUME CARE AT [place].
[2020-10-02 16:55] VITALS: BP 146/65
[2020-10-02 19:07] VITALS: BP 133/66
--- NOTE | 2020-10-03 02:50 | NUR ---
ASSUMED CARE OF PT AT 0700. PT IS A&OX4 AND VITAL SIGNS ARE STABLE. PT DENIES PAIN AT THIS TIME. PT SLEEPING AT THIS TIME. CATHETER DRAINING CLEAR YELLOW URINE. DRESSING TO SUPERPUBIC AREA C/D/I. FALL PRECAUTIONS IN PLACE AND NURSING WILL CONTINUE TO MONITOR.
--- NOTE | 2020-10-03 02:54 | NUR ---
ASSUMED CARE OF PT AT 1900. PT IS A&OX4 AND VITAL SIGNS ARE STABLE. PT HAS DENIED PAIN AND IS SLEEPING AT THIS TIME. CATHETER DRAINING APPROPRIATELY. DRESSING TO SUPERPUBIC AREA C/D/I. FALL PRECAUTIONS IN PLACE AND NURSING WILL CONTINUE TO MONITOR.
[2020-10-03 07:15] VITALS: BP 123/87
--- NOTE | 2020-10-03 10:10 | NUR ---
Nutrition: Pt remains on rehab unit, seen for LOS. Pt continues to have good appetite, is eating well. Weights remain stable. No PU noted. Pt remains low nutrition risk.
--- NOTE | 2020-10-03 11:33 | NUR ---
ASSUMED CARE AT 0700. PATIENT IS ALERT AND ORIENTED X4. PATIENT STALEY'S, BRICK EXTRUDER OPERATOR ARE EQUAL. LUNGS ARE CLEAR AND ABD IS SOFT WITH BSX4. DRESSING CHANGED TO SUPRAPUBIC AREA. HERE FOR INSTRUCTION. PATIENT HAS LUQUE TO DD, DRAINING NOEMI COLORED URINE. OT TO INSTRUCT PATIENT ON LUQUE BAG CHANGE AND LEG BAG CHANGES. UP IN THE CHAIR FOR MEALS. FALL AND SAFETY PROTOCOLS IN PLACE. DENIES PAIN AT THIS TIME. CONTINUES TO PROGRESS SLOWLY TOWARDS D/C GOALS. WILL CONTINUE TO MONITER.
[2020-10-03 11:58] VITALS: BP 146/65
--- NOTE | 2020-10-03 12:01 | NUR ---
CM UPDATED PT AND , WHO WAS AT BEDSIDE, THAT [facility] WILL RESUME CARE
--- NOTE | 2020-10-03 13:00 | NUR ---
ASSUMED CARE AT 0700. PATIENT IS ALERT AND ORIENTED X4. PATIENT STALEY'S, VERIFICATION SPECIALIST ARE EQUAL. LUNGS ARE CLEAR. ABD IS SOFT WITH BSX4. PATIENT HAS LUQUE CATHETER IN PLACE R/T RETENTION AND TUMOR RESECTION. UP IN THE CHAIR FOR MEALS. FALL AND SAFETY PROTOCOLS IN PLACE. DENIES PAIN AT THIS TIME. CONTINUES TO PROGRESS TOWARDS D/C GOALS. WILL CONINTUE TO MONITER.
--- NOTE | 2020-10-03 13:03 | NUR ---
HERE FOR TRAINING. O.T. INSTRUCTED ON LEG AND LUQUE BAG EXCHANGE. WAS COMFORTABLE WITH THIS EDUCATION. WAS INSTRUCTED ON DRESSING CHANGE TO SUPRAPUBIC WOUND. VERBALIZED UNDERSTANDING HOW TO DO DRESSING CHANGE AND THAT [facility] WOULD ALSO DO REINSTRUCTION AFTER DISCHARGE.
[2020-10-03 19:58] VITALS: BP 137/52
[2020-10-04 07:20] VITALS: BP 136/49
--- NOTE | 2020-10-04 11:30 | NUR ---
ASSUMED CARE AT 0700. PATIENT IS ALERT AND ORIENTED X4. PATIENT STALEY'S, EXAMINER OF CURRENCY ARE EQUAL. LUNGS ARE CLEAR. ABD IS SOFT WITH BSX4. UP IN THE CHAIR FOR MEALS. PATIENT IS MOD/I IN ROOM WITH WALKER. PATIENT HAS LUQUE CATHETER IN PLACE DRAINING NOEMI COLORED URINE. DRESSING CHANGED TO SUPRAPUBIC AREA. FALL AND SAFETY PROTOCOLS IN PLACE. DENIES PAIN AT THIS TIME. CONTINUES TO PROGRESS TOWARDS D/C GOALS. PLAN D/C TO HOME LATER TODAY. WILL CONTINUE TO MONITER.
[2020-10-04] MEDS ORDERED: HYDRALAZINE 5050 MG PO (12:10)
[2020-10-04] MEDS ORDERED: COLACE 100 MG100 MG PO (12:10)
--- NOTE | 2020-10-04 12:10 | NUR ---
Patient to discharge today with Home with [facility], awaiting final confirmation of acceptance and then will move forward with d/c with HH.
[2020-10-04 12:16] VITALS: BP 146/65
--- NOTE | 2020-10-04 12:53 | NUR ---
PATIENT GIVEN D/C INSTRUCTIONS. SCRIPTS SENT TO PATIENTS PHARMACY. PATIENT LEFT WITH ALL OF HIS BELONGINGS AND D/C INSTRUCTIONS. LUQUE CHANGED TO LEG BAG. PATIENT INDEPENDENTLY TRANSFERED TO [facility]. SEAT BELT APPLIED. PATIENT LEFT IN GOOD CONDITION.
--- NOTE | 2020-10-04 15:22 | NUR ---
PT DISCHARGING TODAY TO HOME WITH [facility] FAXED DC ORDERS/SUMMARY SPOKE WITH SIMONA IN INTAKE SHE RECEIVED ORDERS AND WILL ARRANGE VISITS WITH PT.
== END 2020-10-04 13:57 | disposition home health service (06) | DRG 947 ==
PROVIDERS: Internal Medicine; ADMIT Physical Medicine & Rehabilitation; ATTEND Physical Medicine & Rehabilitation
DX: R53.81 Other malaise (principal); J18.9 Pneumonia, unspecified organism; I25.110 Atherosclerotic heart disease of native coronary artery with unstable angina pectoris; E44.0 Moderate protein-calorie malnutrition; I25.10 Atherosclerotic heart disease of native coronary artery without angina pectoris; S31.109A Unspecified open wound of abdominal wall, unspecified quadrant without penetration into peritoneal cavity, initial encounter; E66.9 Obesity, unspecified; K21.9 Gastro-esophageal reflux disease without esophagitis; E03.9 Hypothyroidism, unspecified; R33.9 Retention of urine, unspecified; M19.90 Unspecified osteoarthritis, unspecified site; K76.0 Fatty (change of) liver, not elsewhere classified; D50.9 Iron deficiency anemia, unspecified; N18.30 Chronic kidney disease, stage 3 unspecified; E11.22 Type 2 diabetes mellitus with diabetic chronic kidney disease; K22.70 Barrett's esophagus without dysplasia; I12.9 Hypertensive chronic kidney disease with stage 1 through stage 4 chronic kidney disease, or unspecified chronic kidney disease; X58.XXXA Exposure to other specified factors, initial encounter; Z68.35 Body mass index [BMI] 35.0-35.9, adult; Z90.49 Acquired absence of other specified parts of digestive tract; Z87.442 Personal history of urinary calculi; Z79.82 Long term (current) use of aspirin; Z79.899 Other long term (current) drug therapy; Y93.89 Activity, other specified; Y92.89 Other specified places as the place of occurrence of the external cause; Y99.8 Other external cause status
CPT/HCPCS: 10112